=== PATIENT | female | born 1990 | race American Indian/Alaskan Native ===

== ENCOUNTER 2019-01-07 18:54 | Outpatient (CLI) | payer MEDICAID ==
[2019-01-07] MEDS ORDERED: LACTATED RINGERS 1,000 ML IV ONE (19:32)
[2019-01-07 20:01] LABS: Bacteria,Urine 3+ /HPF (Negative); Bilirubin,Urine NEG (Negative); Blood,Urine NEG (Negative); Color,Urine Amber (Yellow); Mucus,Urine 1+ /HPF
[2019-01-07 20:18] VITALS: BP 110/72
== END 2019-01-07 21:51 | disposition home or self-care (01) ==
LOC: TRG 18:54
PROVIDERS: ATTEND Obstetrics & Gynecology
DX: O21.8 Other vomiting complicating pregnancy (principal); K92.0 Hematemesis; O30.032 Twin pregnancy, monochorionic/diamniotic, second trimester; Z3A.22 22 weeks gestation of pregnancy
CPT/HCPCS: 81001; 96360; J7120

== ENCOUNTER 2019-02-07 18:54 | Inpatient (IN) | payer MEDICAID ==
[2019-02-07] MEDS ORDERED: CELESTONE SOLUSPAN IM SCH (22:00)
--- NOTE | 2019-02-08 15:23 | Consultation ---
History of Present Illness Consult date: 02/08/19 Requesting physician: ALINE SAN Reason for consult: complicated delivery (TWins with discordant growth and AEDV) History of present illness: Patient ANTONIA JOHNSON : 89 Attending: Dr. Aline San Fisher Gill Net: Ian Brar M.D. Date of Consultation: Friday, February 08, 2019 PERINATOLOGY CONSULTATION: Thank you for allowing us to continue to participate in the care of this patient. As you are aware, this is a 28-year-old para 0000 followed by our [facility] office due to a twin gestation. Her expected due date is 05/10/19 This patient was noted on an ultrasound in our office on 02/03/19 to have markedly discordant twin gestation. At the time of her last ultrasound (she was at 26 weeks 2 days) we found that Twin A is significantly smaller than twin B Twin A: 445 gram (1 pound 0 oz, 0th percentile) Twin B: 883 gram (1 pound 15 oz, 29th percentile) Patient previously had only one documented ultrasound performed at [facility] which showed: Twin A: 9 weeks 4 days. Twin B: 10 weeks 0 days. Patient does NOT have a documented MSAFP or NIPT test during this . Our ultrasound confirms what is now recognized to be a discordant monochorionic - diamniotic twin gestation. Patient is currently at 27 weeks gestation. Her LUCILLE is 05/10/19 Todays ultrasound shows significant discrepancy in size and weight as reflected above. During todays visit I had the opportunity to discuss the nature of discordant growth. The discrepancy in weight is 39 %. We also noted is normal amniotic fluid for both fetuses. Accordingly, the findings above are NOT consistent with classical twin to twin transfusion (since there is also no discrepancy in amniotic fluid). ULTRASOUND AT [facility] 02/07/19: PLEASE NOTE. TWINS HAVE SWITCHED IN REFERENCE TO PREVIOUS ULTRASOUNDS: TWIN A: 960 gram ( 960 gm 2 pound 2 oz, 29th percentile), BPP: 8/8 . UA Doppler: 2.67 2 vessel umbilical cord. Twin B: 585 gram ( 1 pound 5 oz, 0th percentile), BPP: 8/8 , UA Doppler: AEDV 2 vessel umbilical cord. PAST OB HISTORY: No previous pregnancies. PAST MEDICAL HISTORY: Patient DENIES hypertension, diabetes or asthma . PAST SURGICAL HISTORY: Gallstones in 2015 . I have reviewed the prognosis for this given the above findings. The patient denies contractions, abdominal pain, vaginal bleeding or fluid leakage. Patient was sent to [facility] yesterday for Steroids, and heart rate monitoring. She is awaiting an ultrasound for Doppler studies. DISCORDANT GROWTH AT 27 WEEKS GESTATION: In feliciano pregnancies with growth retardation due to presumed utero- placental insufficiency the aim of care is to select the appropriate time for delivery. This is achieved by balancing the relative risks of intrauterine with expectant management and or handicap from iatrogenic delivery. In dichorionic twin pregnancies discordant for intrauterine growth retardation the condition of both fetuses needs to be considered. Previous studies have shown that a policy of managing such pregnancies expectantly by avoiding iatrogenic delivery, irrespective of the condition of the smaller twin, unless the minimum gestation was 32 weeks and /or the estimated weight of the larger twin was more than 1500 g in 29 dichorionic pregnancies was reviewed. The policy of expectant management until 32 weeks or an estimated weight of the larger fetus of 1500 g aimed at minimizing the risk of and handicap of the appropriately grown fetus, by avoiding iatrogenic severe delivery irrespective of the condition of the growth retarded co-twin. After 32 weeks the timing of delivery aimed to maximize the chance of survival of the growth retarded twin. REFERENCE 1. We also reviewed the fact that weight discordance is associated with a poor and outcome, increased caesarean deliveries, a higher mortality and more intensive care unit admissions. Mult ivariate analysis shows that growth discordance is an independent risk factor for mortality but not for cerebral adverse outcome or respiratory distress syndrome. REFERENCE 2. Past History - Obstetrical History : 1 Medications and Allergies Allergies Allergy/AdvReac Type Severity Reaction Status Date / Time No Known Allergies Allergy Unverified 10/18/18 09:44 Home Medications Medication Instructions Recorded Confirmed Last Taken Type No Known Home Medications [No 02/08/19 02/08/19 Unknown History Reported Home Medications] Active Meds: Active Medications Betamethasone Acet/Betameth SodPhos (Celestone Soluspan) 12 mg IM Q24H NIKKIE Stop: 02/08/19 22:01 Last Admin: 02/07/19 22:25 Dose: 12 mg Documented by: - Vital Signs Vital signs: Vital Signs Pulse BP 113 H 129/63 02/07/19 20:21 02/07/19 20:21 Temp Pulse Resp BP Pulse Ox 97.7 F 106 H 15 126/62 96 02/08/19 08:34 02/08/19 13:14 02/08/19 08:34 02/08/19 13:14 02/07/19 23:45 Results All other labs normal. Assessment and Plan ASSESSMENT As stated above this is a MONOchorionic diamniotic twin gestation at 27 weeks with significant significant growth discordance which does NOT appear to be related to twin to twin transfusion syndrome (TTTS) The aforementioned findings place this patient at risk for spontanesous loss as well as an increased risk for spontaneous as well as and demise in utero for both fetuses. This does NOT appear to be a case for amnioreduction,. Based on todays ultrasound we CANNOT rule out aneuploidy in one or potentially both fetuses. Patient does not have an MSAFP test available for review. Given the discordancy; I have indicated that the likelihood for is increased. We would recommend steroids. Determination regarding inpatient vs outpatient management should be based on NST and follow-up Doppler during a 24 hour hospitalization to provide steroids. With continued AEDV in twin B; we would recommend ongoing hospitalization. At her last visit she was referred the patient for TORCH titers as well as testing for metabolic, or thrombophilia causes for growth restriction (although the likelihood for these conditions is not known) Patient was offered the option of amniocentesis or NIPT testing (Panorama). AWAITING DOPPLER TO DETERMINE INPATIENT VS OUTPATIENT THERAPY. RECOMMENDATIONS: 1. We discussed the concept of amniocentesis (for diagnosis of aneuploidy) as well as NIPT testing (ie Panorama test) for diagnosis of aneuploidy. 2. Patient DECLINED amniocentesis and NIPT (Panorama) testing today. 3. We will forward the TORCH and other testing when they become available. 4. We discussed the risk for loss in this . 5. Following NIPT testing and testing for other forms of discordant growth; I have recommended that she proceed to [facility] for steroids and FHT testing. 6. Contact [facility] following 24 hours of surveillance so that we can review her tracing to see if she is a candidate for ongoing inpatient or (possible) outpatient management. 7. With continued AEDV in twin B; we would recommend ongoing hospitalization. 8. I have reviewed the warning signs of labor with the patient. 9. Contact the [facility] physician vice president of talent acquisition with the results of the Doppler studies. Thank you for the consult. REFERENCES: 1. Lee Ann Peguero HughesK, et al Dichorionic twins discordant for intrauterine growth retardation Archives of Disease in Childhood - and [id number];77:[id number]. 2. J Gynecol Obstet Biol Reprod ([place]).2001;31(1 Suppl):9V49-28. Growth discordance in dichorionic twin pregnancies: risk factors, diagnosis and management. Sheng Orta,Betty M,Aj V,Rafal M,Nimisha Oro,Brigette Rossi.
[2019-02-08] MEDS ORDERED: COLACE PO PRN (17:53)
[2019-02-08] MEDS ORDERED: SODIUM CHLORIDE FLUSH SYRINGE 10 ML IV PRN (17:53)
[2019-02-08] MEDS ORDERED: SENOKOT S PO PRN (17:53)
[2019-02-08] MEDS ORDERED: TYLENOL PO PRN (17:53)
--- NOTE | 2019-02-08 18:03 | History and Physical Report ---
History of Present Illness Date of examination: 02/07/19 Date of admission: 02/07/19 18:54 Chief complaint: I need monitoring History of present illness: Patient is a 28 year old who presents with a twin at 26 weeks as a transfer patient. She was seen at [facility] and told she had discordant growth and 2 vessel cords x2. She presents to the hospital at the request of [facility] for monitoring, steroids and iv hydration. Past History Past Medical History: no pertinent history Past Surgical History: no surgical history Social history: single - Obstetrical History Expected Date of Delivery: 05/11/19 Actual Gestation: 26 Week(s) 6 Day(s) : 1 Medications and Allergies Allergies Allergy/AdvReac Type Severity Reaction Status Date / Time No Known Allergies Allergy Unverified 10/18/18 09:44 Home Medications Medication Instructions Recorded Confirmed Last Taken Type No Known Home Medications [No 02/08/19 02/08/19 Unknown History Reported Home Medications] Active Meds: Active Medications Acetaminophen (Tylenol) 650 mg PO Q4H PRN PRN Reason: Pain MILD(1-3)/Fever >100.5/MOORE Betamethasone Acet/Betameth SodPhos (Celestone Soluspan) 12 mg IM Q24H NIKKIE Stop: 02/08/19 22:01 Last Admin: 02/07/19 22:25 Dose: 12 mg Documented by: Docusate Sodium (Colace) 100 mg PO Q12H PRN PRN Reason: Constipation Multivitamins/Iron/Calcium ( Vitamin) 1 each PO QDAY NIKKIE Senna/Docusate Sodium (Senokot S) 2 tab PO Q12H PRN PRN Reason: Laxative Effect Sodium Chloride (Sodium Chloride Flush Syringe 10 Ml) 10 ml IV PRN PRN PRN Reason: LINE FLUSH Review of Systems All systems: negative Constitutional: fatigue - Vital Signs Vital signs: Vital Signs Pulse BP 113 H 129/63 02/07/19 20:21 02/07/19 20:21 Temp Pulse Resp BP Pulse Ox 97.9 F 104 H 15 140/64 96 02/08/19 16:20 02/08/19 16:12 02/08/19 16:20 02/08/19 16:12 02/07/19 23:45 - Physical Exam Breasts: Cardiovascular: Regular rate, Normal S1, Normal S2 Lungs: Positive: Clear to auscultation, Normal air movement Abdomen: Positive: normal appearance, soft, normal bowel sounds. Negative: distention, tenderness Genitourinary (Female): Positive: normal external genitalia, normal perenium Vulva: both: normal Vagina: Positive: normal moisture. Negative: discharge Cervix: Negative: lesion, discharge Uterus: Positive: normal size, normal contour Adnexa: both: normal Anus/Rectum: Positive: normal perianal skin, heme negative. Negative: rectal mass, hemorrhoids Extremities: Deep Tendon Reflex Grade: Normal +2 Results All other labs normal. Assessment and Plan Twin IUP with discordance, IUGR and AEDF. WIll admit for steroids and inpatient management per [facility].
--- NOTE | 2019-02-08 21:01 | Ultrasound Report ---
PROCEDURE: US OB VELOCIMETRY UMBILCAL ART TECHNIQUE: Real-time sonography was performed of the gravid uterus including duplex evaluation of th e umbilical cord. Images are submitted for interpretation. FINDINGS: There is a twin in the uterus. Twin A is in cephalic presentation and has a heart rate of 1 43 bpm. Twin B is also in the cephalic presentation and has a heart beat of 145 beats per second. Twin A cord duplex: Normal vascular waveforms with preserved diastolic flow. S/D ratio: 1. free loop: 3.41 2. free loop: 3.69 3. free loop: 3.42 S/D ratio average: 3.5 Diastolic flow is persistent RI: 1. free loop: 0.71 2. free loop: 0.73 3. free loop: 0.71 RI average: 0.71 Diastolic flow is persistent Twin B cord duplex: Intermittent end diastolic flow. PI: 1. free loop: 1.80 (elevated) 2. free loop: 1.42 (elevated) 3. free loop: 1.31 (elevated) PI average: 1.51 (elevated) There is an anterior myometrial fibroid measuring 6.3 x 5.2 x 6.8 cm. IMPRESSION: 1. Normal cord duplex twin A 2. Intermittent end-diastolic flow in twin B umbilical artery. Elevated pulsatility index This document is electronically signed by Blanca Chavez MD., February 08 2019 08:59:19 PM ET
[2019-02-09] MEDS: PRENATAL VITAMIN PO SCH (10:57)
--- NOTE | 2019-02-09 15:33 | Progress Note ---
Assessment and Plan ASSESSMENT MONOchorionic diamniotic twin gestation at 27 + weeks with significant significant growth discordance Patient at risk for spontanesous loss as well as an increased risk for spontaneous as well as and demise in Steroid for lung maturity Twin B with continued intermittent end diastolic flow per ultrasound dated 02/08/19 With continued AEDV in twin B; we recommend ongoing hospitalization. RECOMMENDATIONS: 1. With continued AEDV in twin B; we would recommend ongoing hospitalization. 2. Contact the [facility] physician fire prevention inspector with the results of the Doppler studies. 3. Twice weekly doppler and BPP 4. Not a candidate for discharge at this time 5. We will follow this patient Thank you for giving us the opportunity to participate in the care of this patient. For further questions or concerns please contact our fire prevention inspector physician. Subjective - Subjective Date of service: 02/09/19 Principal diagnosis: [place]-Di twin gestation, Twin B AEDV, growth restriction Patient reports: movement normal, other (Denies vaginal bleeding, contractions, leakage of fluid.) Objective - Vital Signs Vital Signs: Vital Signs - 12hr 02/09/19 02/09/19 02/09/19 08:35 09:02 11:04 Temperature 98.4 F Pulse Rate 90 103 H Respiratory 18 Rate Blood Pressure 122/68 O2 Sat by Pulse 97 Oximetry 02/09/19 02/09/19 02/09/19 11:09 11:14 11:19 Temperature Pulse Rate 102 H 108 H 99 H Respiratory Rate Blood Pressure O2 Sat by Pulse 100 98 98 Oximetry 02/09/19 02/09/19 02/09/19 11:24 11:29 11:34 Temperature Pulse Rate 97 H 111 H 105 H Respiratory Rate Blood Pressure O2 Sat by Pulse 98 98 100 Oximetry 02/09/19 02/09/19 02/09/19 12:03 12:08 12:13 Temperature Pulse Rate 129 H 115 H 113 H Respiratory Rate Blood Pressure O2 Sat by Pulse 98 98 99 Oximetry 02/09/19 02/09/19 02/09/19 12:18 12:23 12:36 Temperature 98.4 F Pulse Rate 108 H 125 H 144 H Respiratory 18 Rate Blood Pressure O2 Sat by Pulse 99 98 97 Oximetry 02/09/19 02/09/19 02/09/19 12:41 12:46 12:51 Temperature Pulse Rate 116 H 113 H 118 H Respiratory Rate Blood Pressure O2 Sat by Pulse 98 98 99 Oximetry 02/09/19 02/09/19 02/09/19 12:56 13:01 13:57 Temperature Pulse Rate 109 H 117 H 111 H Respiratory Rate Blood Pressure O2 Sat by Pulse 98 99 100 Oximetry 02/09/19 02/09/19 02/09/19 14:03 14:28 14:33 Temperature Pulse Rate 109 H 103 H 104 H Respiratory Rate Blood Pressure O2 Sat by Pulse 100 99 99 Oximetry 02/09/19 02/09/19 02/09/19 14:38 14:43 14:48 Temperature Pulse Rate 106 H 101 H 106 H Respiratory Rate Blood Pressure O2 Sat by Pulse 98 98 98 Oximetry 02/09/19 02/09/19 02/09/19 14:53 14:58 15:12 Temperature Pulse Rate 109 H 99 H Respiratory Rate Blood Pressure O2 Sat by Pulse 98 98 96 Oximetry 02/09/19 15:17 Temperature Pulse Rate 114 H Respiratory Rate Blood Pressure O2 Sat by Pulse 98 Oximetry - Exam Cardiovascular: Regular rate Lungs: Normal air movement Abdomen: Present: normal appearance, other (gravid) - Labs Labs: Laboratory Results - last 24 hr 02/08/19 19:58 Blood Type A POSITIVE Antibody Screen TNR SHYLA Antibody Screen Negative
--- NOTE | 2019-02-09 20:02 | Progress Note ---
Assessment and Plan HD 2 for this twin gestation with growth discordance and AEDF of twin B. Per [facility] patient should remain inpatient for an extended time. Continue current management. Subjective - Subjective Date of service: 02/09/19 Principal diagnosis: [place]-Di twin gestation, Twin B AEDV, growth restriction Interval history: Patient is a 28 year old who presents with a twin at 26 weeks as a transfer patient. She was seen at [facility] and told she had discordant growth and 2 vessel cords x2. She presents to the hospital at the request of [facility] for monitoring, steroids and iv hydration. Patient reports: movement normal, other (Denies vaginal bleeding, contractions, leakage of fluid.) Objective - Vital Signs Vital Signs: Vital Signs - 12hr 02/09/19 02/09/19 02/09/19 08:35 09:02 11:04 Temperature 98.4 F Pulse Rate 90 103 H Respiratory 18 Rate Blood Pressure 122/68 O2 Sat by Pulse 97 Oximetry 02/09/19 02/09/19 02/09/19 11:09 11:14 11:19 Temperature Pulse Rate 102 H 108 H 99 H Respiratory Rate Blood Pressure O2 Sat by Pulse 100 98 98 Oximetry 02/09/19 02/09/19 02/09/19 11:24 11:29 11:34 Temperature Pulse Rate 97 H 111 H 105 H Respiratory Rate Blood Pressure O2 Sat by Pulse 98 98 100 Oximetry 02/09/19 02/09/19 02/09/19 12:03 12:08 12:13 Temperature Pulse Rate 129 H 115 H 113 H Respiratory Rate Blood Pressure O2 Sat by Pulse 98 98 99 Oximetry 02/09/19 02/09/19 02/09/19 12:18 12:23 12:36 Temperature 98.4 F Pulse Rate 108 H 125 H 144 H Respiratory 18 Rate Blood Pressure O2 Sat by Pulse 99 98 97 Oximetry 02/09/19 02/09/19 02/09/19 12:41 12:46 12:51 Temperature Pulse Rate 116 H 113 H 118 H Respiratory Rate Blood Pressure O2 Sat by Pulse 98 98 99 Oximetry 02/09/19 02/09/19 02/09/19 12:56 13:01 13:57 Temperature Pulse Rate 109 H 117 H 111 H Respiratory Rate Blood Pressure O2 Sat by Pulse 98 99 100 Oximetry 06/05/19 06/05/19 06/05/19 14:03 14:28 14:33 Temperature Pulse Rate 109 H 103 H 104 H Respiratory Rate Blood Pressure O2 Sat by Pulse 100 99 99 Oximetry 02/09/19 02/09/19 02/09/19 14:38 14:43 14:48 Temperature Pulse Rate 106 H 101 H 106 H Respiratory Rate Blood Pressure O2 Sat by Pulse 98 98 98 Oximetry 02/09/19 02/09/19 02/09/19 14:53 14:58 15:12 Temperature Pulse Rate 109 H 99 H Respiratory Rate Blood Pressure O2 Sat by Pulse 98 98 96 Oximetry 02/09/19 02/09/19 02/09/19 15:17 15:22 15:27 Temperature Pulse Rate 114 H 103 H 101 H Respiratory Rate Blood Pressure O2 Sat by Pulse 98 99 99 Oximetry 02/09/19 02/09/19 02/09/19 15:45 15:50 15:56 Temperature Pulse Rate 97 H 95 H 102 H Respiratory Rate Blood Pressure O2 Sat by Pulse 100 100 98 Oximetry 02/09/19 02/09/19 02/09/19 16:01 16:05 16:06 Temperature Pulse Rate 98 H 99 H 101 H Respiratory Rate Blood Pressure 116/66 O2 Sat by Pulse 99 98 Oximetry 02/09/19 02/09/19 02/09/19 16:11 16:16 16:21 Temperature Pulse Rate 95 H 102 H 98 H Respiratory Rate Blood Pressure O2 Sat by Pulse 99 98 98 Oximetry 02/09/19 02/09/19 02/09/19 16:26 16:31 16:36 Temperature Pulse Rate 95 H 97 H 97 H Respiratory Rate Blood Pressure O2 Sat by Pulse 98 98 99 Oximetry 02/09/19 02/09/19 02/09/19 16:41 16:42 16:46 Temperature Pulse Rate 99 H 114 H 101 H Respiratory Rate Blood Pressure O2 Sat by Pulse 99 79 L 100 Oximetry 02/09/19 02/09/19 02/09/19 17:02 17:07 17:12 Temperature Pulse Rate 107 H 102 H 98 H Respiratory Rate Blood Pressure O2 Sat by Pulse 100 100 100 Oximetry 02/09/19 02/09/19 02/09/19 17:17 17:22 17:27 Temperature Pulse Rate 108 H 100 H 99 H Respiratory Rate Blood Pressure O2 Sat by Pulse 99 100 97 Oximetry 02/09/19 17:32 Temperature Pulse Rate 103 H Respiratory Rate Blood Pressure O2 Sat by Pulse 97 Oximetry - Exam Breasts: deferred Cardiovascular: Regular rate, Normal S1, Normal S2 Lungs: Clear to auscultation, Normal air movement Abdomen: Present: normal appearance, soft, normal bowel sounds Uterus: Present: normal FHR: auscultation normal - Labs Labs: Laboratory Results - last 24 hr 02/08/19 19:58 Blood Type A POSITIVE Antibody Screen TNR SHYLA Antibody Screen Negative
--- NOTE | 2019-02-10 09:13 | Ultrasound Report ---
PROCEDURE: US OB VELOCIMETRY UMBILCAL ART TECHNIQUE: Limited real-time sonography was performed of the gravid uterus including duplex evaluat ion of the umbilical cord. Images are submitted for interpretation. HISTORY: ABSENT END DIASTOLIC FLOW TWIN B COMPARISONS: 02/08/2019 FINDINGS: There is a twin in the uterus. Twin B is in the cephalic presentation and has a heart beat of 145 beats per second. Twin B cord duplex: Intermittently absent end diastolic flow. PI: 1. free loop: 1.80 (elevated) 2. free loop: 1.42 (elevated) 3. free loop: 1.31 (elevated) PI average: 1.51 (elevated) There is an anterior myometrial fibroid measuring 6.3 x 5.2 x 6.8 cm. IMPRESSION: Intermittently absent end diastolic flow in the umbilical artery of Twin B with elevated pulsatility index. This document is electronically signed by Bella James MD., February 10 2019 09:11:02 AM ET
--- NOTE | 2019-02-10 15:12 | Progress Note ---
Assessment and Plan ASSESSMENT As stated above this is a MONOchorionic diamniotic twin gestation at 27.2 weeks with significant significant growth discordance which does NOT appear to be related to twin to twin ( per Dr. Brar ) transfusion syndrome (TTTS) . Twin B with severe IUGR and AEDV . Twin A with SUA . Twin B with SUA The aforementioned findings place this patient at risk for spontanesous loss as well as an increased risk for spontaneous as well as and demise in utero for both fetuses. This does NOT appear to be a case for amnioreduction,. CANNOT rule out aneuploidy in one or potentially both fetuses. Patient does not have an MSAFP test available for review. Given the discordancy; I have indicated that the likelihood for is increased. With continued AEDV in twin B; we would recommend ongoing hospitalization. At her last visit she was referred the patient for TORCH titers as well as testing for metabolic, or thrombophilia causes for growth restriction (although the likelihood for these conditions is not known) Patient was previously offered the option of amniocentesis or NIPT testing (Panorama). Initial care with [facility] . NIPT was performed by [facility] RECOMMENDATIONS: 1. Continue inpatient assessment . 2. Patient previously DECLINED amniocentesis and NIPT (Panorama) testing today. 3. Please order the following TORCH panel, HgbA1C, TSH, Lupus Anticoagulant panel, [facility], and YARED ( [facility] did not previously perform ) 4. We discussed the risk for loss in this . 5. Twin growth assessment Q 2 week 6. Twin A and Twin B BPP and Doppler studies M/W/F 7. With continued AEDV in twin B; we would recommend ongoing hospitalization. 8. Contact the [facility] physician supervisor home restoration service with the results of the Doppler studies. 9. LDA Subjective - Subjective Principal diagnosis: [place]-Di twin gestation, Twin B AEDV, growth restriction Patient reports: movement normal, other (Denies vaginal bleeding, contractions, leakage of fluid.) Objective - Vital Signs Vital Signs: Vital Signs - 12hr 02/10/19 02/10/19 02/10/19 04:30 07:51 07:56 Temperature 97.4 F L Pulse Rate 87 76 77 Respiratory 20 Rate Blood Pressure 131/63 Blood Pressure [Left] O2 Sat by Pulse 99 99 Oximetry 02/10/19 02/10/19 02/10/19 08:01 08:06 08:11 Temperature Pulse Rate 86 81 77 Respiratory Rate Blood Pressure Blood Pressure [Left] O2 Sat by Pulse 99 98 98 Oximetry 02/10/19 02/10/19 08:12 11:02 Temperature 98.0 F Pulse Rate 79 99 H Respiratory 14 Rate Blood Pressure 115/60 114/52 Blood Pressure 115/60 [Left] O2 Sat by Pulse 98 Oximetry - Exam Breasts: deferred Cardiovascular: Regular rate Lungs: Normal air movement Abdomen: Present: other (gravid ). Absent: tenderness, guarding FHR: category 1 (for 27 weeks ) Uterine Contraction Pattern: Absent Deep Tendon Reflex Grade: Normal +2 - Results US- obstetric: report reviewed (see [facility] for full report )
[2019-02-10] MEDS: PRENATAL VITAMIN PO SCH (18:14)
--- NOTE | 2019-02-10 23:42 | Progress Note ---
Assessment and Plan HD 2 for this twin gestation with growth discordance and AEDF of twin B. Per [facility] patient should remain inpatient for an extended time. Continue current management. Subjective - Subjective Date of service: 02/10/19 Principal diagnosis: [place]-Di twin gestation, Twin B AEDV, growth restriction Interval history: Patient is a 28 year old who presents with a twin at 26 weeks as a transfer patient. She was seen at [facility] and told she had discordant growth and 2 vessel cords x2. She presents to the hospital at the request of [facility] for monitoring, steroids and iv hydration. Patient reports: movement normal, other (Denies vaginal bleeding, contractions, leakage of fluid.) Objective - Vital Signs Vital Signs: Vital Signs - 12hr 02/10/19 02/10/19 02/10/19 15:38 15:47 19:44 Temperature 97.2 F L 97.6 F Pulse Rate 100 H 91 H Blood Pressure 111/72 Blood Pressure 116/58 [Left] 02/10/19 19:46 Temperature Pulse Rate 91 H Blood Pressure 116/58 Blood Pressure [Left] - Exam Lungs: Clear to auscultation, Normal air movement Abdomen: Present: normal appearance, soft. Absent: distention, tenderness Uterus: Present: normal FHR: auscultation normal
--- NOTE | 2019-02-11 08:51 | Progress Note ---
Assessment and Plan A: [place]-di twin IUP at 27w2d admitted for growth discordance, severe IUGR of Twin B, Absent End Diastolic Flow of Twin B Obesity Fibroid Uterus P: Continue M/W/F doppler studies and in-patient monitoring [facility] recommendations appreciated. Subjective - Subjective Date of service: 02/11/19 Principal diagnosis: [place]-Di twin gestation, Twin B AEDV, growth restriction Interval history: Pt without complaints. Maintains positive attitude despite possibility of prolonged hospitalization. No obstetric complaints. Patient reports: movement normal, no new complaints, no loss of fluid, no vaginal bleeding, no contractions Objective - Vital Signs Vital Signs: Vital Signs - 12hr 02/11/19 02/11/19 02/11/19 07:57 08:02 08:07 Pulse Rate 86 91 H 92 H O2 Sat by Pulse 98 98 97 Oximetry 02/11/19 02/11/19 02/11/19 08:12 08:17 08:22 Pulse Rate 97 H 88 94 H O2 Sat by Pulse 97 97 97 Oximetry 02/11/19 02/11/19 02/11/19 08:27 08:32 08:37 Pulse Rate 83 93 H 86 O2 Sat by Pulse 98 98 97 Oximetry 02/11/19 02/11/19 08:42 08:47 Pulse Rate 85 83 O2 Sat by Pulse 97 98 Oximetry - Exam Breasts: deferred Cardiovascular: Regular rate Lungs: Clear to auscultation Abdomen: Present: soft (obese, gravid ) Uterus: Present: normal (gravid ) FHR: auscultation normal Uterine Contraction Monitor Mode: External Uterine Contraction Pattern: Absent Uterine Tone Measurement Phase: Resting Extremities: normal
--- NOTE | 2019-02-11 09:18 | Ultrasound Report ---
PROCEDURE: US OB VELOCIMETRY UMBILCAL ART TECHNIQUE: Duplex Doppler ultrasound of the umbilical artery was performed. HISTORY: well being COMPARISONS: Ultrasound of the umbilical artery performed on 02/08/2019 FINDINGS: There is a twin in the uterus. Twin A is in cephalic presentation. heart rate is 146 bpm. There is a normal waveform, however there is decreased end diastolic flow. S/D ratio: 1. free loop: 3.73 2. free loop: 4.69 3. free loop: 4.37 S/D ratio average: 4.3 RI: 1. free loop: 0.73 2. free loop: 0.79 3. free loop: 0.77 RI average: 0.76 IMPRESSION: Elevated S/D ratio and resistive index within the waveform of the umbilical artery for twin A, with d ecreased end diastolic flow. This document is electronically signed by Bella James MD., February 11 2019 09:15:41 AM ET
--- NOTE | 2019-02-11 09:44 | Ultrasound Report ---
PROCEDURE: US OB VELOCIMETRY UMBILCAL ART TECHNIQUE: Duplex Doppler ultrasound of the umbilical arteries was performed. HISTORY: well being COMPARISONS: 02/08/2019 FINDINGS: There is a twin . Twin B is in cephalic presentation. heart rate is 131 bpm. There is decreased end diastolic flow within the arterial waveform. There is a normal sawtooth patter n. S/D ratio: 1. Free loop: 5.45 2. Free loop: 3.44 3. Free loop: 4.74 S/D ratio average: 4.54 RI: 1. Free loop: 0.82 2. Free loop: 0.71 3. Free loop: 0.79 RI average: 0.77 IMPRESSION: Decreased end diastolic flow within the umbilical artery with elevated S/D ratio and resi stive index. This document is electronically signed by Bella James MD., February 11 2019 09:42:40 AM ET
[2019-02-11] MEDS: PRENATAL VITAMIN PO SCH (11:53)
--- NOTE | 2019-02-11 14:00 | Ultrasound Report ---
ULTRASOUND OB VELOCIMETRY UMBILICAL ARTERY HISTORY: ADEF. TECHNIQUE: Transabdominal ultrasound. Spectral Doppler interrogation was performed on 3 segments of the umbilical cord. FINDINGS: BABY A heart rate measures 161 beats per minute. The spectral waveforms are normal and persistent. No evidence for loss or reversal of end-diastolic flow. The resistive index average measures 0.70. The systolic/diastolic ratio average measures 3.31. IMPRESSION: Mildly elevated resistive indices. ULTRASOUND OB VELOCIMETRY UMBILICAL ARTERY HISTORY: ADEF. TECHNIQUE: Transabdominal ultrasound. Spectral Doppler interrogation was performed on 3 segments of the umbilical cord. FINDINGS: BABY B heart rate measures 149 beats per minute. The spectral waveforms demonstrate loss of end-diastolic flow on 2 of the 3 segments of the umbilical cord evaluated. The pulsatility index average measures 1.87. IMPRESSION: Loss of end-diastolic flow.
--- NOTE | 2019-02-11 14:01 | Progress Note ---
Assessment and Plan ASSESSMENT As stated above this is a Monochorionic diamniotic twin gestation at 27 weeks 3 days with significant significant growth discordance which does NOT appear to be related to twin to twin transfusion syndrome (TTTS) The aforementioned findings place this patient at risk for spontaneous loss as well as an increased risk for spontaneous as well as and demise in utero for both fetuses. This does NOT appear to be a case for amnioreduction,. Based on todays ultrasound we CANNOT rule out aneuploidy in one or potentially both fetuses. Patient does not have an MSAFP test available for review. Given the discordancy; I have indicated that the likelihood for is increased. We would recommend steroids. Determination regarding inpatient vs outpatient management should be based on NST and follow-up Doppler during a 24 hour hospitalization to provide steroids. With continued AEDV in twin B; we would recommend ongoing hospitalization. At her last visit she was referred the patient for TORCH titers as well as testing for metabolic, or thrombophilia causes for growth restriction (although the likelihood for these conditions is not known) AWAITING NIPT testing (Panorama).. RECOMMENDATIONS: 1. We discussed the concept of amniocentesis (for diagnosis of aneuploidy) as well as NIPT testing (ie Panorama test) for diagnosis of aneuploidy. 2. Patient DECLINED amniocentesis and NIPT (Panorama) testing today. 3. We will forward the TORCH and other testing when they become available. 4. We discussed the risk for loss in this . 5. Following NIPT testing and testing for other forms of discordant growth; I have recommended that she proceed to [facility] for steroids and FHT testing. 6. Contact [facility] following 24 hours of surveillance so that we can review her tracing to see if she is a candidate for ongoing inpatient or (possible) outpatient management. 7. We recommend continued inpatient monitoring due to IUGR and absent end d iastolic velocity. 8. I have reviewed the warning signs of labor with the patient. 9. Contact the [facility] physician website optimization strategist with the results of the Doppler studies. Thank you for the consult. Subjective - Subjective Date of service: 02/11/19 Principal diagnosis: [place]-Di twin gestation, Twin B AEDV, growth restriction Interval history: Patient ANTONIA JOHNSON : 89 Attending: Dr. Aline Arreguin Lens Dotter: Ian Brar M.D. Date of Consultation: Monday, February 11, 2019 PERINATOLOGY CONSULTATION: Thank you for allowing us to continue to participate in the care of this pat ient. As you are aware, this is a 28-year-old para 0000 followed by our [facility] office due to a twin gestation. She is currently at 27 weeks 3 days based on an expected due date is 05/10/19 This patient was noted on an ultrasound in our office on 02/03/19 to have markedly discordant twin gestation. At the time of her last ultrasound (she was at 26 weeks 2 days) we found that Twin A is significantly smaller than twin B Twin A: 445 gram (1 pound 0 oz, 0th percentile) Twin B: 883 gram (1 pound 15 oz, 29th percentile) Patient previously had only one documented ultrasound performed at [facility] which showed: Twin A: 9 weeks 4 days. Twin B: 10 weeks 0 days. Patient does NOT have a documented MSAFP or NIPT test during this . Our ultrasound confirms what is now recognized to be a discordant monochorionic - diamniotic twin gestation. Her most recent ultrasound shows significant discrepancy in size and weight as reflected above. During todays visit I had the opportunity to discuss the nature of discordant growth. The discrepancy in weight is 39 %. We also noted is normal amniotic fluid for both fetuses. Accordingly, the findings above are NOT consistent with classical twin to twin transfusion (since there is also no discrepancy in amniotic fluid). ULTRASOUND AT [facility] 02/07/19: PLEASE NOTE. TWINS HAVE SWITCHED IN REFERENCE TO PREVIOUS ULTRASOUNDS: TWIN A: 960 gram ( 960 gm 2 pound 2 oz, 29th percentile), BPP: 8/8 . UA Doppler: 2.67 2 vessel umbilical cord. Twin B: 585 gram ( 1 pound 5 oz, 0th percentile), BPP: 8/8 , UA Doppler: AEDV 2 vessel umbilical cord. ULTRASOUND AT [facility] 02/08/19: Twin A: FHR: 143 BPM, S/D ratio: 3.5, Placenta Anterior, Vertex. Twin B: FHR: 145 BPM, S/D ratio: Intermittent AEDV, Anterior PAST OB HISTORY: No previous pregnancies. PAST MEDICAL HISTORY: Patient DENIES hypertension, diabetes or asthma . PAST SURGICAL HISTORY: Gallstones in 2015 . I have reviewed the prognosis for this given the above findings. The patient denies contractions, abdominal pain, vaginal bleeding or fluid leakage. Patient was sent to [facility] yesterday for Steroids, and heart rate monitoring. She is awaiting her NIPT testing. Patient reports: movement normal, no new complaints, no loss of fluid, no vaginal bleeding, no contractions Objective - Vital Signs Vital Signs: Vital Signs - 12hr 02/11/19 02/11/19 02/11/19 07:57 08:02 08:07 Pulse Rate 86 91 H 92 H O2 Sat by Pulse 98 98 97 Oximetry 02/11/19 02/11/19 02/11/19 08:12 08:17 08:22 Pulse Rate 97 H 88 94 H O2 Sat by Pulse 97 97 97 Oximetry 02/11/19 02/11/19 02/11/19 08:27 08:32 08:37 Pulse Rate 83 93 H 86 O2 Sat by Pulse 98 98 97 Oximetry 02/11/19 02/11/19 02/11/19 08:42 08:47 08:52 Pulse Rate 85 83 87 O2 Sat by Pulse 97 98 97 Oximetry 02/11/19 02/11/19 08:57 09:02 Pulse Rate 85 86 O2 Sat by Pulse 97 98 Oximetry
[2019-02-12] MEDS: PRENATAL VITAMIN PO SCH (10:36)
--- NOTE | 2019-02-12 12:30 | Progress Note ---
Assessment and Plan A: [place]-di twin IUP at 27w3d admitted for inpatient monitoring secondary to growth discordance, severe IUGR of Twin B, Absent End Diastolic Flow of Twin B Obesity Fibroid Uterus P: Continue M/W/F doppler studies and in-patient monitoring Continue current management Subjective - Subjective Date of service: 02/12/19 Principal diagnosis: [place]-Di twin gestation, Twin B AEDV, growth restriction Interval history: Pt without complaints. Maintains positive attitude despite possibility of prolonged hospitalization. No obstetric complaints. Informed of ultrasound results from yesterday. Patient reports: movement normal, no new complaints, no loss of fluid, no vaginal bleeding, no contractions Objective - Vital Signs Vital Signs: Vital Signs - 12hr 02/12/19 02/12/19 10:19 10:26 Temperature 98.8 F Pulse Rate 100 H 100 H Respiratory 16 Rate Blood Pressure 113/55 Blood Pressure 113/55 [Left] - Exam Breasts: deferred Cardiovascular: Regular rate Lungs: Clear to auscultation Abdomen: Present: soft (obese, gravid ) Uterus: Present: normal (gravid ) FHR: auscultation normal Uterine Contraction Pattern: Absent Uterine Tone Measurement Phase: Resting Extremities: normal
[2019-02-13] MEDS: PRENATAL VITAMIN PO SCH (09:47)
--- NOTE | 2019-02-13 11:58 | Progress Note ---
Assessment and Plan A: [place]-di twin IUP at 27w4d admitted for inpatient monitoring secondary to growth discordance, severe IUGR of Twin B, Absent End Diastolic Flow of Twin B. s/p 2 doses of betamethasone 02/07 and 02/08 Obesity Fibroid Uterus P: Continue M/W/F doppler studies and in-patient monitoring. Next study tomorrow Continue current management Subjective - Subjective Date of service: 02/13/19 Principal diagnosis: [place]-Di twin gestation, Twin B AEDV, growth restriction Interval history: Pt without complaints. Maintains positive attitude despite possibility of prolonged hospitalization. No obstetric complaints. Patient reports: movement normal, no new complaints, no loss of fluid, no vaginal bleeding, no contractions Objective - Vital Signs Vital Signs: Vital Signs - 12hr 02/13/19 02/13/19 02/13/19 00:41 01:01 08:00 Temperature 98.6 F 97.6 F Pulse Rate 133 H Respiratory 20 14 Rate Blood Pressure 119/80 - Exam Breasts: deferred Cardiovascular: Regular rate Lungs: Clear to auscultation Abdomen: Present: soft (obese, gravid ) Uterus: Present: normal (gravid ) FHR: auscultation normal Uterine Contraction Pattern: Absent Uterine Tone Measurement Phase: Resting Extremities: edema (trace) - Results US- obstetric: report reviewed
[2019-02-13 13:26] LABS: Hematocrit 35.8 % (30.3-42.9); Hemoglobin 12.2 gm/dl (10.1-14.3); Mean Corpuscular HGB Conc 34 % (30-34); Mean Corpuscular Volume 94 fl (79-97); Platelet Count 282 K/mm3 (140-440); Red Blood Count 3.81 M/mm3 (3.65-5.03); Red Cell Distribution Width 17.9 % (13.2-15.2)
[2019-02-13] MEDS: BABY ASPIRIN PO SCH (15:39)
--- NOTE | 2019-02-14 07:48 | Progress Note ---
Assessment and Plan A: [place]-di twin IUP at 27w5d admitted for inpatient monitoring secondary to growth discordance, severe IUGR of Twin B, Absent End Diastolic Flow of Twin B. s/p 2 doses of betamethasone 02/07 and 02/08 Obesity Fibroid Uterus P: Continue M/W/F doppler studies and in-patient monitoring. study today - will report to [facility] results Continue current management Subjective - Subjective Date of service: 02/14/19 Principal diagnosis: [place]-Di twin gestation, Twin B AEDV, growth restriction Patient reports: movement normal, no new complaints, no loss of fluid, no vaginal bleeding, no contractions Objective - Vital Signs Vital Signs: Vital Signs - 12hr 02/13/19 02/14/19 20:19 01:39 Temperature 98.4 F Pulse Rate 101 H Respiratory 18 Rate Blood Pressure 120/57 - Exam Breasts: normal Cardiovascular: Regular rate, Normal S1 Lungs: Clear to auscultation, Normal air movement Abdomen: Present: normal appearance, soft, normal bowel sounds. Absent: distention, tenderness, guarding Vulva: both: normal Uterus: Present: normal, fundal height above umbilicus. Absent: bogginess, tenderness FHR: category 1 Extremities: normal Deep Tendon Reflex Grade: Normal +2 - Labs Labs: Abnormal Labs 02/13/19 12:51 WBC 17.0 H RDW 17.9 H Laboratory Results - last 24 hr 02/13/19 02/13/19 02/13/19 12:51 12:51 12:51 WBC 17.0 H RBC 3.81 Hgb 12.2 Hct 35.8 MCV 94 MCH 32 MCHC 34 RDW 17.9 H Plt Count 282 Hemoglobin A1c 4.7 TSH Blood Type A POSITIVE Antibody Screen Negative 02/13/19 12:51 WBC RBC Hgb Hct MCV MCH MCHC RDW Plt Count Hemoglobin A1c TSH 0.656 Blood Type Antibody Screen
[2019-02-14] MEDS: PRENATAL VITAMIN PO SCH (10:08)
[2019-02-14] MEDS: PEPCID PO SCH ×2 (10:09→22:30)
--- NOTE | 2019-02-14 13:23 | Ultrasound Report ---
ULTRASOUND BIOPHYSICAL PROFILE: ULTRASOUND BIOPHYSICAL PROFILE ADD EXAM: History: Intrauterine growth restriction Technique: Transabdominal ultrasound with Doppler interrogation. BABY A 2 - breathing movements 2 - movements 2 - posture and tone 2 - Qualitative amniotic fluid volume 8 - TOTAL SCORE OF POSSIBLE 8 Heart Rate (bpm) 144 BABY B 2 - breathing movements 2 - movements 2 - posture and tone 2 - Qualitative amniotic fluid volume 8 - TOTAL SCORE OF POSSIBLE 8 Heart Rate (bpm) 139
--- NOTE | 2019-02-14 13:24 | Ultrasound Report ---
ULTRASOUND OB VELOCIMETRY UMBILICAL ARTERY HISTORY: Intrauterine growth restriction. TECHNIQUE: Transabdominal ultrasound. Spectral Doppler interrogation was performed on 3 segments of the umbilical cord. FINDINGS: BABY A heart rate measures 147 beats per minute. The spectral waveforms are normal and persistent. No evidence for loss or reversal of end-diastolic flow. The resistive index average measures 0.73. The systolic/diastolic ratio average measures 3.73. IMPRESSION: Mildly elevated resistive indices. No significant change since 02/11/19.
--- NOTE | 2019-02-14 13:25 | Ultrasound Report ---
ULTRASOUND OB VELOCIMETRY UMBILICAL ARTERY HISTORY: Intrauterine growth restriction. TECHNIQUE: Transabdominal ultrasound. Spectral Doppler interrogation was performed on 3 segments of the umbilical cord. FINDINGS: heart rate measures 139 beats per minute. The spectral waveforms again demonstrate loss of end-diastolic flow. The average pulsatility index measures 2.16. IMPRESSION: Loss of end-diastolic flow as described. No significant change since 02/11/19.
--- NOTE | 2019-02-14 14:06 | Progress Note ---
Assessment and Plan ASSESSMENT MONOchorionic diamniotic twin gestation at 27 6/7 weeks ([place] 05/10/19) with significant significant growth discordance Patient at risk for spontanesous loss as well as an increased risk for spontaneous as well as and demise in Steroid for lung maturity Twin B with continued intermittent end diastolic flow per ultrasound dated 02/14/19 With continued AEDV in twin B; we recommend ongoing hospitalization. The aforementioned findings place this patient at risk for spontaneous loss as well as an increased risk for spontaneous as well as and demise in utero for both fetuses. Patient does not have an MSAFP test available for review. RECOMMENDATIONS: 1. With continued AEDV in twin B; we would recommend ongoing hospitalization. 2. Contact the [facility] physician transitional care nurse with the results of the Doppler studies. 3. Twice weekly doppler and BPP 4. Not a candidate for discharge at this time 5. We will follow this patient 6. We recommend continued inpatient monitoring due to IUGR and absent end diastolic velocity. Thank you for giving us the opportunity to participate in the care of this patient. For further questions or concerns please contact our transitional care nurse physician. Subjective - Subjective Date of service: 02/14/19 Principal diagnosis: [place]-Di twin gestation, Twin B AEDV, growth restriction Patient reports: movement normal, no new complaints, no loss of fluid, no vaginal bleeding, no contractions Objective - Exam Breasts: deferred Cardiovascular: Regular rate Lungs: Normal air movement Abdomen: Present: normal appearance (gravid) - Labs Labs: Abnormal Labs 02/13/19 12:51 WBC 17.0 H RDW 17.9 H Laboratory Results - last 24 hr 02/13/19 12:51 Blood Type A POSITIVE Antibody Screen Negative
--- NOTE | 2019-02-15 08:19 | Progress Note ---
Assessment and Plan A: [place]-di twin IUP at 27w6d admitted for inpatient monitoring secondary to growth discordance, severe IUGR of Twin B, Two vessel cord x 2, Absent End Diastolic Flow of Twin B. s/p 2 doses of betamethasone 02/07 and 02/08 Obesity Fibroid Uterus P: Continue M/W/F doppler studies and in-patient monitoring. Next study tomorrow Continue current management Subjective - Subjective Date of service: 02/15/19 Principal diagnosis: [place]-Di twin gestation, Twin B AEDV, growth restriction Interval history: Pt somewhat frustrated with prolonged hospitalization. No obstetric complaints. Patient reports: movement normal, no new complaints, no loss of fluid, no vaginal bleeding, no contractions Objective - Vital Signs Vital Signs: Vital Signs - 12hr 02/14/19 02/14/19 02/15/19 22:27 22:28 01:57 Temperature 97.8 F Pulse Rate 117 H 100 H Respiratory 18 Rate Blood Pressure 129/93 98/54 02/15/19 02:00 Temperature 97.8 F Pulse Rate Respiratory 18 Rate Blood Pressure - Exam Breasts: deferred Cardiovascular: Regular rate Lungs: Clear to auscultation Abdomen: Present: normal appearance (obese, gravid ). Absent: tenderness Uterus: Present: normal (gravid ) FHR: auscultation normal Uterine Contraction Monitor Mode: External Uterine Contraction Pattern: Absent Uterine Tone Measurement Phase: Resting Extremities: normal - Labs Labs: Abnormal Labs 02/13/19 12:51 WBC 17.0 H RDW 17.9 H - Results US- obstetric: report reviewed
--- NOTE | 2019-02-15 11:01 | Progress Note ---
Assessment and Plan ASSESSMENT As stated above this is a Monochorionic diamniotic twin gestation at 27 weeks 6 days with significant significant growth discordance which does NOT appear to be related to twin to twin transfusion syndrome (TTTS) The aforementioned findings place this patient at risk for spontaneous loss as well as an increased risk for spontaneous as well as and demise in utero for both fetuses. This does NOT appear to be a case for amnioreduction,. Given the discordancy; I have indicated that the likelihood for is increased. We would recommend steroids. With continued AEDV in twin B; we would recommend ongoing hospitalization. At her last visit she was referred the patient for TORCH titers as well as testing for metabolic, or thrombophilia causes for growth restriction (although the likelihood for these conditions is not known) Negative NIPT testing RECOMMENDATIONS: 1. We discussed the concept of amniocentesis (for diagnosis of aneuploidy) as well as NIPT testing. 2. Her NIPT test was NEGATIVE 3. We will forward the TORCH and other testing when they become available. 4. We discussed the risk for loss in this . 5. Following NIPT testing and testing for other forms of discordant growth; I have recommended that she proceed to [facility] for steroids and FHT testing. 6. Contact [facility] following 24 hours of surveillance so that we can review her tracing to see if she is a candidate for ongoing inpatient or (possible) outpatient management. 7. We recommend continued inpatient monitoring due to IUGR and absent end diastolic velocity. 8. I have reviewed the warning signs of labor with the patient. 9. Contact the [facility] physician electrical & instrumentation supervisor with the results of the Doppler studies. Thank you for the consult. Subjective - Subjective Date of service: 02/15/19 Principal diagnosis: [place]-Di twin gestation, Twin B AEDV, growth restriction Interval history: Patient ANTONIA JOHNSON : 89 Attending: Dr. Aline Arreguin Turbine Room Attendant: Ian Brar M.D. Date of Consultation: Friday, February 15, 2019 PERINATOLOGY CONSULTATION: Thank you for allowing us to continue to participate in the care of this patient. As you are aware, this is a 28-year-old para 0000 followed by our [facility] office due to a twin gestation. She is currently at 27 weeks 6 days based on an expected due date is 9/3/19 ULTRASOUND AT [facility] 02/07/19: PLEASE NOTE. TWINS HAVE SWITCHED IN REFERENCE TO PREVIOUS ULTRASOUNDS: TWIN A: 960 gram ( 960 gm 2 pound 2 oz, 29th percentile), BPP: 8/8 . UA Doppler: 2.67 2 vessel umbilical cord. Twin B: 585 gram ( 1 pound 5 oz, 0th percentile), BPP: 8/8 , UA Doppler: AEDV 2 vessel umbilical cord. ULTRASOUND AT [facility] 02/08/19: Twin A: FHR: 143 BPM, S/D ratio: 3.5, Placenta Anterior, Vertex. Twin B: FHR: 145 BPM, S/D ratio: Intermittent AEDV, Anterior PAST OB HISTORY: No previous pregnancies. PAST MEDICAL HISTORY: Patient DENIES hypertension, diabetes or asthma . PAST SURGICAL HISTORY: Gallstones in 2015 . I have reviewed the prognosis for this given the above findings. The patient denies contractions, abdominal pain, vaginal bleeding or fluid leakage. Patient was sent to [facility] yesterday for Steroids, and heart rate monitoring. THE RESULTS OF HER NIPT TEST FROM LAST WEEK WAS NEGATIVE. DISCORDANT GROWTH AT 27-28 WEEKS GESTATION: In feliciano pregnancies with growth retardation due to presumed utero- placental insufficiency the aim of care is to select the appropriate time for delivery. This is achieved by balancing the relative risks of intrauterine with expectant management and or handicap from iatrogenic delivery. In dichorionic twin pregnancies discordant for intrauterine growth retardation the condition of both fetuses needs to be considered. Previous studies have shown that a policy of managing such pregnancies expectantly by avoiding iatrogenic delivery, irrespective of the condition of the smaller twin, unless the minimum gestation was 32 weeks and /or the estimated weight of the larger twin was more than 1500 g in 29 dichorionic pregnancies was reviewed. The policy of expectant management until 32 weeks or an estimated weight of the larger fetus of 1500 g aimed at minimizing the risk of and handicap of the appropriately grown fetus, by avoiding iatrogenic severe delivery irrespective of the condition of the growth retarded co-twin. After 32 weeks the timing of delivery aimed to maximize the chance of survival of the growth retarded twin. REFERENCE 1. We also reviewed the fact that weight discordance is associated with a poor and outcome, increased caesarean deliveries, a higher mortality and more intensive care unit admissions. Multivariate analysis shows that growth discordance is an independent risk factor for mortality but not for cerebral adverse outcome or respiratory distress syndrome. REFERENCE 2.. Patient reports: movement normal, no new complaints, no loss of fluid, no vaginal bleeding, no contractions Objective - Vital Signs Vital Signs: Vital Signs - 12hr 02/15/19 02/15/19 01:57 02:00 Temperature 97.8 F Pulse Rate 100 H Respiratory 18 Rate Blood Pressure 98/54 - Labs Labs: Abnormal Labs 02/13/19 12:51 WBC 17.0 H RDW 17.9 H
[2019-02-15] MEDS: PEPCID PO SCH (15:43)
[2019-02-15] MEDS: BABY ASPIRIN PO SCH (15:43)
--- NOTE | 2019-02-16 09:45 | Progress Note ---
Assessment and Plan A: [place]-di twin IUP at 28w0d admitted for inpatient monitoring secondary to growth discordance, severe IUGR of Twin B, Two vessel cord x 2, Absent End Diastolic Flow of Twin B. s/p 2 doses of betamethasone 02/07 and 02/08 Obesity Fibroid Uterus P: Continue M/W/F BPP and Doppler studies and in-patient monitoring. Next study today Continue current management Subjective - Subjective Date of service: 02/16/19 Principal diagnosis: [place]-Di twin gestation, Twin B AEDV, growth restriction Interval history: Pt without obstetric complaints. Patient reports: movement normal, no new complaints, no loss of fluid, no vaginal bleeding, no contractions Objective - Vital Signs Vital Signs: Vital Signs - 12hr 02/16/19 02/16/19 02/16/19 00:00 04:15 05:00 Temperature 98 F 98.1 F Pulse Rate 82 100 H 98 H Respiratory 18 18 Rate Blood Pressure 134/80 Blood Pressure 124/64 120/60 [Left] O2 Sat by Pulse 98 98 Oximetry 02/16/19 09:09 Temperature 97.9 F Pulse Rate Respiratory 16 Rate Blood Pressure Blood Pressure [Left] O2 Sat by Pulse Oximetry - Exam Breasts: deferred Cardiovascular: Regular rate Lungs: Clear to auscultation Abdomen: Present: soft (obese, gravid ) Uterus: Present: normal (gravid ) FHR: auscultation normal Uterine Contraction Monitor Mode: External Uterine Contraction Pattern: Absent Uterine Tone Measurement Phase: Resting Extremities: normal - Labs Labs: Abnormal Labs 02/13/19 12:51 WBC 17.0 H RDW 17.9 H Laboratory Results - last 24 hr 02/13/19 12:51 Lupus Anticoagulant see below
[2019-02-16] MEDS: PEPCID PO SCH (10:32)
[2019-02-16] MEDS: PRENATAL VITAMIN PO SCH (10:32)
[2019-02-16] MEDS: BABY ASPIRIN PO SCH (10:32)
--- NOTE | 2019-02-16 15:18 | Ultrasound Report ---
ULTRASOUND BIOPHYSICAL PROFILE: ULTRASOUND BIOPHYSICAL PROFILE ADD EXAM: History: Twin gestation, intrauterine growth restriction, well being Technique: Transabdominal ultrasound with Doppler interrogation. BABY A 2 - breathing movements 2 - movements 2 - posture and tone 2 - Qualitative amniotic fluid volume 8 - TOTAL SCORE OF POSSIBLE 8 Heart Rate (bpm) 157 BABY B 2 - breathing movements 2 - movements 2 - posture and tone 2 - Qualitative amniotic fluid volume 8 - TOTAL SCORE OF POSSIBLE 8 Heart Rate (bpm) 149
--- NOTE | 2019-02-16 15:21 | Ultrasound Report ---
ULTRASOUND OB VELOCIMETRY UMBILICAL ARTERY HISTORY: Intrauterine growth restriction, twin gestation. TECHNIQUE: Transabdominal ultrasound. Spectral Doppler interrogation was performed on 3 segments of the umbilical cord. FINDINGS: BABY A heart rate measures 157 beats per minute. The spectral waveforms are normal and persistent. No evidence for loss or reversal of end-diastolic flow. The resistive index average measures 0.70. The systolic/diastolic ratio average measures 3.47.
--- NOTE | 2019-02-16 15:22 | Ultrasound Report ---
ULTRASOUND OB VELOCIMETRY UMBILICAL ARTERY HISTORY: Twin gestation, intrauterine growth restriction. TECHNIQUE: Transabdominal ultrasound. Spectral Doppler interrogation was performed on 3 segments of the umbilical cord. FINDINGS: BABY B heart rate measures 149 beats per minute. The spectral waveforms demonstrate loss of end-diastolic flow. The pulsatility index average measures 2.23.
[2019-02-17] MEDS: PEPCID PO SCH ×3 (03:10→21:52)
--- NOTE | 2019-02-17 08:47 | Progress Note ---
Assessment and Plan A: [place]-di twin IUP at 28w1d admitted for inpatient monitoring secondary to growth discordance, severe IUGR of Twin B, Two vessel cord x 2, Absent End Diastolic Flow of Twin B. s/p 2 doses of betamethasone 02/07 and 02/08 Obesity Fibroid Uterus P: Continue M/W/F BPP and Doppler studies and in-patient monitoring. Next study tomorrow Continue current management Subjective - Subjective Date of service: 02/17/19 Principal diagnosis: [place]-Di twin gestation, Twin B AEDV, growth restriction Interval history: Pt without obstetric complaints. Patient reports: movement normal, no new complaints, no loss of fluid, no vaginal bleeding, no contractions Objective - Vital Signs Vital Signs: Vital Signs - 12hr 02/17/19 02/17/19 03:15 03:19 Temperature 97.6 F Pulse Rate 109 H 109 H Respiratory 16 Rate Blood Pressure 122/60 Blood Pressure 122/60 [Left] - Exam Breasts: deferred Cardiovascular: Regular rate Lungs: Clear to auscultation Abdomen: Present: soft (gravid, obese ) Uterus: Present: normal FHR: auscultation normal Uterine Contraction Monitor Mode: External Uterine Contraction Pattern: Absent Uterine Tone Measurement Phase: Resting Extremities: normal - Labs Labs: Abnormal Labs 02/13/19 12:51 WBC 17.0 H RDW 17.9 H Laboratory Results - last 24 hr 02/16/19 14:01 Blood Type A POSITIVE Antibody Screen Negative
[2019-02-17] MEDS: BABY ASPIRIN PO SCH (11:20)
[2019-02-17] MEDS: PRENATAL VITAMIN PO SCH (11:20)
[2019-02-17] MEDS: ZOFRAN IV PRN (13:05)
--- NOTE | 2019-02-17 13:46 | Consultation ---
History of Present Illness Consult date: 02/17/19 Requesting physician: EDWIGE SAN History of present illness: Followed now at 28 2/7 weeks MonoDi Twins Twin B with Severe IUGR and AEDF No complaints Denies Vag bleeding leaking ctx Pos FM's APA US 02/07/19 Twin A 960 grams 29% with AC at 6% Twin B 585 grams 0% with AC at 0% and AEDF Most Recent [facility] US 02/16/19 BPP Twin A 8/8 with Cord Doppler - S/D at 3.47 BPP Twin B 8/8 with Cord Doppler - AEDF Labs 02/13/19 TSH at .656 HgA1c at 4.7% H/H Plt 282 Afeb VSS 122/60 Past History Past Medical History: no pertinent history Past Surgical History: no surgical history - Obstetrical History : 1 Medications and Allergies Allergies Allergy/AdvReac Type Severity Reaction Status Date / Time No Known Allergies Allergy Unverified 10/18/18 09:44 Home Medications Medication Instructions Recorded Confirmed Last Taken Type No Known Home Medications [No 02/08/19 02/08/19 Unknown History Reported Home Medications] Active Meds: Active Medications Acetaminophen (Tylenol) 650 mg PO Q4H PRN PRN Reason: Pain MILD(1-3)/Fever >100.5/MOORE Last Admin: 02/12/19 12:52 Dose: 650 mg Documented by: Aspirin (Baby Aspirin) 81 mg PO QDAY [facility] Last Admin: 02/17/19 11:20 Dose: 81 mg Documented by: Docusate Sodium (Colace) 100 mg PO Q12H PRN PRN Reason: Constipation Famotidine (Pepcid) 20 mg PO BID [facility] Last Admin: 02/17/19 11:20 Dose: 20 mg Documented by: Lactated Ringer's (Lactated Ringers) 1,000 mls @ 125 mls/hr IV DIRECT [facility] Multivitamins/Iron/Calcium ( Vitamin) 1 each PO QDAY [facility] Last Admin: 02/17/19 11:20 Dose: 1 each Documented by: Ondansetron HCl (Zofran) 4 mg IV Q8H PRN PRN Reason: Nausea And Vomiting Last Admin: 02/17/19 13:05 Dose: 4 mg Documented by: Senna/Docusate Sodium (Senokot S) 2 tab PO Q12H PRN PRN Reason: Laxative Effect Sodium Chloride (Sodium Chloride Flush Syringe 10 Ml) 10 ml IV PRN PRN PRN Reason: LINE FLUSH - Vital Signs Vital signs: Vital Signs Pulse BP 113 H 129/63 02/07/19 20:21 02/07/19 20:21 Temp Pulse Resp BP Pulse Ox 97.6 F 118 H 16 119/61 98 02/17/19 03:15 02/17/19 11:40 02/17/19 03:15 02/17/19 11:40 02/16/19 20:00 Results Result Diagrams: 02/13/19 12:51 All other labs normal. Assessment and Plan Impression 1. [place] Di Twins at 28 2/7 weeks 2. Severe IUGR Twin B with AEDF 3. SUA Twin A and B 4. Patient had declined Amnio for aneuploidy - Awaiting NIPT 5. Will check for other labs Torch sent out 6. Delivery for evidence of compromise or REDF 7. S/P steroids and Mg 8. Cont close A-P surveillance and Cord dopplers and BPP on M/W/ 9. Obtain US EFW q 2-3 weeks next EFW's should be done week of 02/21/19
[2019-02-17] MEDS ORDERED: DEEP SEA NS PRN (19:28)
[2019-02-18] MEDS: AMBIEN PO PRN ×2 (00:22→23:06)
--- NOTE | 2019-02-18 08:21 | Progress Note ---
Assessment and Plan A: [place]-di twin IUP at 27w6d admitted for inpatient monitoring secondary to growth discordance, severe IUGR of Twin B, Absent End Diastolic Flow of Twin B. s/p 2 doses of betamethasone 02/07 and 02/08 Obesity Fibroid Uterus P: Continue M/W/F doppler studies and in-patient monitoring. us PENDING TODAY study today - will report to [facility] results Continue current management Subjective - Subjective Date of service: 02/18/19 Principal diagnosis: [place]-Di twin gestation, Twin B AEDV, growth restriction Patient reports: movement normal, no new complaints, no loss of fluid, no vaginal bleeding, no contractions Objective - Vital Signs Vital Signs: Vital Signs - 12hr 02/17/19 02/18/19 21:24 00:36 Temperature 98.1 F Pulse Rate 102 H 100 H Respiratory 20 Rate Blood Pressure 126/65 115/55 - Exam Breasts: normal Cardiovascular: Regular rate, Normal S1 Lungs: Clear to auscultation, Normal air movement Abdomen: Present: normal appearance, soft, normal bowel sounds. Absent: te nderness, guarding Vulva: both: normal Uterus: Present: normal, firm, fundal height above umbilicus. Absent: bogginess, tenderness FHR: category 1 - Labs Labs: Abnormal Labs 02/13/19 12:51 WBC 17.0 H RDW 17.9 H Laboratory Results - last 24 hr 02/13/19 12:51 LA PTT Baseline See scanned result dRVVT Screen 50:50 See scanned result dRVVT Mix Interpret See scanned result
[2019-02-18] MEDS: ZOFRAN IV PRN (08:46)
[2019-02-18] MEDS: PRENATAL VITAMIN PO SCH (10:18)
[2019-02-18] MEDS: BABY ASPIRIN PO SCH (10:18)
[2019-02-18] MEDS: PEPCID PO SCH ×2 (10:18→21:32)
--- NOTE | 2019-02-18 11:33 | Ultrasound Report ---
BIOPHYSICAL PROFILE: BABY A INDICATION: IUGR. COMPARISON: 02/16/2019. TECHNIQUE: Transabdominal ultrasound with Doppler interrogation. 2 - breathing movements 2 - movements 2 - posture and tone 2 - Qualitative amniotic fluid volume 8 - TOTAL SCORE OF POSSIBLE 8 Heart Rate (bpm) 151 CONCLUSION: Findings, as above.
--- NOTE | 2019-02-18 11:34 | Ultrasound Report ---
BIOPHYSICAL PROFILE: BABY B INDICATION: IUGR, AEDF. COMPARISON: 02/16/2019. TECHNIQUE: Transabdominal ultrasound with Doppler interrogation. 2 - breathing movements 2 - movements 2 - posture and tone 2 - Qualitative amniotic fluid volume 8 - TOTAL SCORE OF POSSIBLE 8 Heart Rate (bpm) 166 CONCLUSION: Findings, as above.
--- NOTE | 2019-02-18 11:44 | Ultrasound Report ---
ULTRASOUND OB VELOCIMETRY UMBILICAL ARTERY: FETUS B HISTORY: IUGR. Absent end diastolic flow. COMPARISON: 02/16/2019 FINDINGS: Transabdominal imaging with spectral Doppler interrogation. 3 separate segments of the cord were evaluated. heart rate measures 166 beats per minute. No end-diastolic flow noted. Free loop Pulsitivity Indices (PI) in the examined loops are 2.3, 2.75 and 2.38 with average PI = 2.5. Flow pattern is persistent. CONCLUSION: Findings for Fetus B, as above. Thank you for the opportunity to participate in this patient's care.
--- NOTE | 2019-02-18 11:46 | Ultrasound Report ---
ULTRASOUND OB VELOCIMETRY UMBILICAL ARTERY: FETUS A HISTORY: IUGR. COMPARISON: 02/16/2019. FINDINGS: Transabdominal imaging with spectral Doppler interrogation. 3 separate segments of the cord were evaluated. heart rate measures 142 beats per minute. Free loop S/D ratio in the examined loops are 2.9, 3.2 and 3.4 with average S/D ratio = 3.2. Normal waveform. Flow pattern is persistent. Free loop RI in the examined loops are 0.66, 0.69 and 0.71 with average RI= 0.69. Normal waveform. Flow pattern is persistent. CONCLUSION: Normal and persistent spectral waveforms are demonstrated throughout for Fetus A. The S/D ratio average measures 3.2. The resistive index average measures 0.69. Thank you for the opportunity to participate in this patient's care.
[2019-02-19] MEDS: BABY ASPIRIN PO SCH (18:43)
[2019-02-19] MEDS: PRENATAL VITAMIN PO SCH (18:43)
[2019-02-19] MEDS ORDERED: BICITRA PO ONE (19:14)
[2019-02-20] MEDS: LACTATED RINGERS 1,000 ML IV SCH (08:23)
[2019-02-20] MEDS ORDERED: BICITRA ONE (08:24)
--- NOTE | 2019-02-20 09:42 | Progress Note ---
Assessment and Plan A: [place]-di twin IUP at 28 weeks admitted for inpatient monitoring secondary to growth discordance, severe IUGR of Twin B, Absent End Diastolic Flow of Twin B. s/p 2 doses of betamethasone 02/07 and 02/08 Obesity Fibroid Uterus P: Dopplers no change- repeat tomorrow continue to follow MFM recommendations Continue current management Subjective - Subjective Date of service: 02/20/19 Principal diagnosis: [place]-Di twin gestation, Twin B AEDV, growth restriction Patient reports: movement normal, no new complaints, no loss of fluid, no vaginal bleeding, no contractions Objective - Exam Breasts: normal Cardiovascular: Regular rate, Normal S1 Lungs: Clear to auscultation, Normal air movement Abdomen: Present: normal appearance, soft, normal bowel sounds. Absent: distention, tenderness, guarding Vulva: both: normal Uterus: Present: normal, firm, fundal height above umbilicus. Absent: bogginess, tenderness FHR: category 1 - Labs Labs: Abnormal Labs 02/13/19 12:51 WBC 17.0 H RDW 17.9 H
[2019-02-21] MEDS: PEPCID PO SCH (10:16)
[2019-02-21] MEDS: PRENATAL VITAMIN PO SCH (10:16)
[2019-02-21] MEDS: BABY ASPIRIN PO SCH (10:17)
--- NOTE | 2019-02-21 14:22 | Consultation ---
History of Present Illness Consult date: 02/21/19 Requesting physician: EDWIGE SAN History of present illness: Followed now at 28 6/7 weeks MonoDi Twins Twin B with Severe IUGR and AEDF No complaints Denies Vag bleeding leaking ctx Pos FM's APA US 02/07/19 Twin A 960 grams 29% with AC at 6% Twin B 585 grams 0% with AC at 0% and AEDF Most Recent [facility] 02/18/19 BPP Twin A 8/8 with Cord Doppler - S/D at 3.2 BPP Twin B 8/8 with Cord Doppler - AEDF Labs 02/13/19 TSH at .656 HgA1c at 4.7% H/H Plt 282 Afeb VSS Past History Past Medical History: no pertinent history Past Surgical History: no surgical history - Obstetrical History : 1 Medications and Allergies Allergies Allergy/AdvReac Type Severity Reaction Status Date / Time No Known Allergies Allergy Unverified 10/18/18 09:44 Home Medications Medication Instructions Recorded Confirmed Last Taken Type No Known Home Medications [No 02/08/19 02/08/19 Unknown History Reported Home Medications] Active Meds: Active Medications Acetaminophen (Tylenol) 650 mg PO Q4H PRN PRN Reason: Pain MILD(1-3)/Fever >100.5/MOORE Last Admin: 02/12/19 12:52 Dose: 650 mg Documented by: Aspirin (Baby Aspirin) 81 mg PO QDAY [facility] Last Admin: 02/21/19 10:17 Dose: 81 mg Documented by: Docusate Sodium (Colace) 100 mg PO Q12H PRN PRN Reason: Constipation Famotidine (Pepcid) 20 mg PO BID [facility] Last Admin: 02/21/19 10:16 Dose: 20 mg Documented by: Lactated Ringer's (Lactated Ringers) 1,000 mls @ 125 mls/hr IV DIRECT [facility] Last Admin: 02/20/19 08:23 Dose: 125 mls/hr Documented by: Multivitamins/Iron/Calcium ( Vitamin) 1 each PO QDAY [facility] Last Admin: 02/21/19 10:16 Dose: 1 each Documented by: Ondansetron HCl (Zofran) 4 mg IV Q8H PRN PRN Reason: Nausea And Vomiting Last Admin: 02/18/19 08:46 Dose: 4 mg Documented by: Senna/Docusate Sodium (Senokot S) 2 tab PO Q12H PRN PRN Reason: Laxative Effect Sodium Chloride (Sodium Chloride Flush Syringe 10 Ml) 10 ml IV PRN PRN PRN Reason: LINE FLUSH Sodium Chloride (Deep Sea) 2 spray NS PRN PRN PRN Reason: Dry Nasal Passages Zolpidem Tartrate (Ambien) 10 mg PO QHS PRN PRN Reason: Insomnia Last Admin: 02/18/19 23:06 Dose: 10 mg Documented by: - Vital Signs Vital signs: Vital Signs Pulse BP 113 H 129/63 02/07/19 20:21 02/07/19 20:21 Temp Pulse Resp BP Pulse Ox 98.6 F 97 H 18 98/51 100 02/21/19 12:46 02/21/19 14:16 02/21/19 12:46 02/21/19 10:05 02/21/19 14:16 Results Result Diagrams: 02/13/19 12:51 All other labs normal. Assessment and Plan Assessment and Plan Impression 1. [place] Di Twins at 28 6/7 weeks 2. Severe IUGR Twin B with AEDF 3. SUA Twin A and B Recommendations 1. EFM 2. Would obtain EFW with BPP and cord dopplers 02/21/19 3. LDA if not receiving daily - 81 mg q day 4. Patient had declined Amnio for aneuploidy - Awaiting NIPT 5. Will check for other labs Torch sent out 6. Delivery for evidence of compromise or REDF 7. S/P steroids and Mg 8. Cont close A-P surveillance and Cord dopplers and BPP on // 9. Obtain US EFW q 2-3 weeks next EFW's should be done week of 02/21/19
--- NOTE | 2019-02-21 18:01 | Progress Note ---
Assessment and Plan Twin IUP with IUGR and abnormal dopplers here for inpatient monitoring. Will deliver as obstretrically indicated. Subjective - Subjective Date of service: 02/21/19 Principal diagnosis: [place]-Di twin gestation, Twin B AEDV, growth restriction Interval history: Patient is a 28 year old who presents with a twin at 26 weeks as a transfer patient. She was seen at [facility] and told she had discordant growth and 2 vessel cords x2. She presents to the hospital at the request of [facility] for monitoring, steroids and iv hydration. Patient reports: movement normal, no new complaints, no loss of fluid, no vaginal bleeding, no contractions Objective - Vital Signs Vital Signs: Vital Signs - 12hr 02/21/19 02/21/19 02/21/19 10:00 10:05 10:06 Temperature 98.6 F Pulse Rate 133 H 132 H Respiratory 18 Rate Blood Pressure 98/51 O2 Sat by Pulse 97 Oximetry 02/21/19 02/21/19 02/21/19 10:20 10:25 10:26 Temperature Pulse Rate 133 H 149 H 147 H Respiratory Rate Blood Pressure O2 Sat by Pulse 98 97 92 Oximetry 02/21/19 02/21/19 02/21/19 10:30 10:36 10:38 Temperature Pulse Rate 116 H 116 H 52 L Respiratory Rate Blood Pressure O2 Sat by Pulse 100 98 47 L Oximetry 02/21/19 02/21/19 02/21/19 10:41 10:46 10:51 Temperature Pulse Rate 121 H 106 H 104 H Respiratory Rate Blood Pressure O2 Sat by Pulse 99 98 97 Oximetry 02/21/19 02/21/19 02/21/19 10:56 11:01 11:06 Temperature Pulse Rate 122 H 123 H 117 H Respiratory Rate Blood Pressure O2 Sat by Pulse 98 99 99 Oximetry 02/21/19 02/21/19 02/21/19 11:11 11:16 11:21 Temperature Pulse Rate 103 H 108 H 94 H Respiratory Rate Blood Pressure O2 Sat by Pulse 99 98 98 Oximetry 02/21/19 02/21/19 02/21/19 11:26 11:31 11:36 Temperature Pulse Rate 118 H 101 H 97 H Respiratory Rate Blood Pressure O2 Sat by Pulse 99 99 99 Oximetry 02/21/19 02/21/19 02/21/19 11:41 11:46 11:51 Temperature Pulse Rate 101 H 97 H 90 Respiratory Rate Blood Pressure O2 Sat by Pulse 99 99 98 Oximetry 02/21/19 02/21/19 02/21/19 11:56 12:01 12:06 Temperature Pulse Rate 87 90 99 H Respiratory Rate Blood Pressure O2 Sat by Pulse 98 99 98 Oximetry 02/21/19 02/21/19 02/21/19 12:11 12:16 12:21 Temperature Pulse Rate 87 102 H 83 Respiratory Rate Blood Pressure O2 Sat by Pulse 100 98 98 Oximetry 02/21/19 02/21/19 02/21/19 12:26 12:31 12:36 Temperature Pulse Rate 97 H 87 89 Respiratory Rate Blood Pressure O2 Sat by Pulse 98 98 100 Oximetry 02/21/19 02/21/19 02/21/19 12:41 12:46 12:51 Temperature 98.6 F Pulse Rate 95 H 89 89 Respiratory 18 Rate Blood Pressure O2 Sat by Pulse 99 99 99 Oximetry 02/21/19 02/21/19 02/21/19 12:56 13:01 13:06 Temperature Pulse Rate 90 82 91 H Respiratory Rate Blood Pressure O2 Sat by Pulse 99 99 99 Oximetry 02/21/19 02/21/19 02/21/19 13:11 13:13 13:16 Temperature Pulse Rate 89 109 H 94 H Respiratory Rate Blood Pressure O2 Sat by Pulse 99 72 L 100 Oximetry 02/21/19 02/21/19 02/21/19 13:21 13:26 13:31 Temperature Pulse Rate 89 91 H 95 H Respiratory Rate Blood Pressure O2 Sat by Pulse 100 100 100 Oximetry 02/21/19 02/21/19 02/21/19 13:34 13:36 13:41 Temperature Pulse Rate 100 H 90 89 Respiratory Rate Blood Pressure O2 Sat by Pulse 83 L 79 L 100 Oximetry 02/21/19 02/21/19 02/21/19 13:46 13:51 13:56 Temperature Pulse Rate 99 H 95 H 93 H Respiratory Rate Blood Pressure O2 Sat by Pulse 99 100 100 Oximetry 02/21/19 02/21/19 02/21/19 14:01 14:03 14:06 Temperature Pulse Rate 93 H 110 H 92 H Respiratory Rate Blood Pressure O2 Sat by Pulse 100 63 L 100 Oximetry 02/21/19 02/21/19 02/21/19 14:11 14:16 14:32 Temperature Pulse Rate 100 H 97 H 105 H Respiratory Rate Blood Pressure O2 Sat by Pulse 100 100 100 Oximetry 02/21/19 02/21/19 02/21/19 14:37 14:42 14:44 Temperature Pulse Rate 110 H 120 H 103 H Respiratory Rate Blood Pressure O2 Sat by Pulse 100 100 93 Oximetry 02/21/19 02/21/19 02/21/19 14:47 14:52 14:57 Temperature Pulse Rate 103 H 87 97 H Respiratory Rate Blood Pressure O2 Sat by Pulse 100 100 100 Oximetry 02/21/19 02/21/19 02/21/19 15:02 15:07 15:12 Temperature Pulse Rate 84 102 H 104 H Respiratory Rate Blood Pressure O2 Sat by Pulse 100 100 100 Oximetry 02/21/19 02/21/19 02/21/19 15:17 15:22 15:27 Temperature Pulse Rate 95 H 104 H 107 H Respiratory Rate Blood Pressure O2 Sat by Pulse 100 100 100 Oximetry 02/21/19 02/21/19 02/21/19 15:35 15:40 15:45 Temperature Pulse Rate 104 H 107 H 98 H Respiratory Rate Blood Pressure O2 Sat by Pulse 53 L 100 100 Oximetry 02/21/19 02/21/19 02/21/19 15:50 15:55 16:00 Temperature 97.9 F Pulse Rate 99 H 101 H 98 H Respiratory 18 Rate Blood Pressure O2 Sat by Pulse 100 100 100 Oximetry 02/21/19 02/21/19 02/21/19 16:02 16:05 16:10 Temperature Pulse Rate 85 92 H 90 Respiratory Rate Blood Pressure 118/71 O2 Sat by Pulse 100 100 Oximetry 02/21/19 02/21/19 02/21/19 16:14 16:15 16:20 Temperature Pulse Rate 101 H 84 88 Respiratory Rate Blood Pressure O2 Sat by Pulse 92 100 100 Oximetry - Exam Breasts: deferred Cardiovascular: Regular rate, Normal S1, Normal S2 Lungs: Clear to auscultation, Normal air movement Abdomen: Present: normal appearance, soft, normal bowel sounds Uterus: Present: normal, firm FHR: auscultation normal - Labs Labs: Abnormal Labs 02/13/19 12:51 WBC 17.0 H RDW 17.9 H
--- NOTE | 2019-02-21 23:44 | Ultrasound Report ---
PROCEDURE: US OB BPP WO NON-STRESS TECHNIQUE: Sonographic evaluation for breathing, movement, tone, and amniotic flui d volume was performed. HISTORY: IUGR COMPARISONS: None . FINDINGS: FETUS A: Amniotic fluid volume Normal-score 2. At least one vertical pocket >2 cm or more in vertical axis . breathing: Normal-score 2 . movement: Normal-score 2 . tone: Normal-score 2 . Score: 8 of 8 . heart rate is 145 bpm IMPRESSION: Normal biophysical profile fetus A. This document is electronically signed by Wil Martinez MD., February 21 2019 11:42:04 PM ET
--- NOTE | 2019-02-21 23:49 | Ultrasound Report ---
PROCEDURE: US OB BPP EA ADD EXAM TECHNIQUE: Sonographic evaluation for breathing, movement, tone, and amniotic flui d volume was performed. HISTORY: IUGR COMPARISONS: None . FINDINGS: FETUS B Amniotic fluid volume Normal-score 2. At least one vertical pocket >2 cm or more in vertical axis . breathing: Normal-score 2 . movement: Normal-score 2 . tone: Normal-score 2 . Score: 8 of 8 . heart rate is 127 bpm IMPRESSION: Normal biophysical profile fetus B. This document is electronically signed by Wil Martinez MD., February 21 2019 11:47:29 PM ET
[2019-02-22] MEDS: BABY ASPIRIN PO SCH (09:52)
[2019-02-22] MEDS: PEPCID PO SCH ×2 (09:52→21:45)
[2019-02-22] MEDS: PRENATAL VITAMIN PO SCH ×2 (09:52→09:53)
--- NOTE | 2019-02-22 23:00 | Ultrasound Report ---
EXAM: US OB FOLLOW UP HISTORY: IUGR TECHNIQUE: Blum scale imaging, duplex Doppler and color flow Doppler imaging are performed with a cur vilinear transducer. COMPARISON: None available. FINDINGS: There is a single IUP in cephalic presentation. The estimated heart rate is 145 beats per minut e. No gross anomaly is seen at this time (very limited views of the anatomy). The following biometric measurements are obtained: BPD 6.50 cm (26 weeks 2 days) HC 23.91 cm (25 weeks 6 days) AC 22.33 cm (27 weeks 1 day) FL 5.66 cm (29 weeks 4days) The estimated composite gestational age is 27 weeks, 2 days, plus/minus standard deviation. The LUCILLE i s 05/21/2019. The biometric ratios are obtained: Cephalic index 85.1 (range 74-83); HC/AC 1.04 (range 1.05-1.22); FL/BPD 86.3 (range 70.8-86.8); FL/HC 23.6 (range 17-22); FL/AC 24.6 (range 20-24). The es timated weight is 1128 g +/-167 g or 2 lbs. 8 oz.+/-6 ounces (9%). There is a anterior placenta, without evidence for placenta previa or abruption. There is no evidence for cervical incompetence. The amniotic fluid volume is within normal limits (largest fluid pocket m easures 3.8 cm AP). The ovaries are not visualized. No free fluid is seen in the pelvis. IMPRESSION: 1. Single live IUP. 2. Estimated gestational age of 27 weeks, 2 days plus/minus standard deviation. The LUCILLE is 05/21/2019 . 3. The estimated heart rate is 145 beats per minute. 4. The estimated weight is 1128 g +/-167 g or 2 lbs. 8 oz.+/-6 ounces (9%). 5. Abnormal biometric ratios in keeping with IUGR. 6. Anterior placenta without evidence for placental previa or abruption. 7. The amniotic fluid volume is within normal limits. 8. The ovaries are not visualized. 9. No free fluid is seen in the pelvis. This document is electronically signed by Eitan Castro MD., February 22 2019 10:58:37 PM ET
--- NOTE | 2019-02-22 23:33 | Ultrasound Report ---
EXAM: US OB FOLLOWUP EA ADD GESTAT: Twin B HISTORY: IUGR TECHNIQUE: Blum scale imaging, duplex Doppler and color flow Doppler imaging are performed with a cur vilinear transducer. COMPARISON: None available. FINDINGS: There is a single IUP in cephalic presentation. The estimated heart rate is 127 beats per minut e. No gross anomaly is seen at this time (very limited views of the anatomy). The following biometric measurements are obtained: BPD 5.87 cm (24 weeks 0 days) HC 22.25 cm (24 weeks 2 days) AC 18.94 cm (23 weeks 5 days) FL 4.39 cm (24 weeks 4 days) The estimated composite gestational age is 24 weeks, 1 day, plus/minus standard deviation. The LUCILLE is 06/12/2019. The biometric ratios are as follows: Cephalic index 80.4 (range 74-83); HC/AC 1.07 (range 1.05-1.22); FL/BPD 75.6 (range 70.8-86.8); FL/HC 20.0 (range 17.0-22.4); FL/AC 23.4 (range 20.0-24.0 ). The estimated weight is 662 g +/-98 g or 1 lb. 7 oz.+/-3 ounces. There is a anterior placenta, without evidence for placenta previa or abruption. There is no evidence for cervical incompetence. The amniotic fluid volume is within normal limits. The ovaries are not visualized. No free fluid is seen in the pelvis. IMPRESSION: 1. Single live IUP in cephalic presentation. 2. Estimated gestational age of 24 weeks, 1 days plus/minus standard deviation. The LUCILLE is 06/12/2019 . 3. The estimated heart rate is 127 beats per minute. 4. The estimated weight is 662 g +/-98 g or 1 lb. 7 oz.+/-3 ounces. 5. Anterior placenta without evidence for placental previa or abruption. 6. The amniotic fluid volume is within normal limits. 7. The ovaries are not visualized. 8. No free fluid is seen in the pelvis. This document is electronically signed by Eitan Castro MD., February 22 2019 11:31:22 PM ET
[2019-02-23] MEDS: PEPCID PO SCH (11:14)
[2019-02-23] MEDS: BABY ASPIRIN PO SCH (11:14)
[2019-02-23] MEDS: PRENATAL VITAMIN PO SCH (11:14)
--- NOTE | 2019-02-23 11:15 | Progress Note ---
Assessment and Plan HD 14 for this twin with IUGR severe for twin B and AEDF. Twin B does not seem to be growing at all. Will discuss delivery with [facility] to see if extrauterine management is more beneficial. Subjective - Subjective Date of service: 02/23/19 Principal diagnosis: [place]-Di twin gestation, Twin B AEDV, growth restriction Interval history: Patient is a 28 year old who presents with a twin at 26 weeks as a transfer patient. She was seen at [facility] and told she had discordant growth and 2 vessel cords x2. She presents to the hospital at the request of [facility] for monitoring, steroids and iv hydration. Patient reports: movement normal, no new complaints, no loss of fluid, no vaginal bleeding, no contractions Objective - Vital Signs Vital Signs: Vital Signs - 12hr 02/22/19 23:13 Temperature 98.6 F Pulse Rate 112 H Respiratory 18 Rate Blood Pressure 116/55 [Left] - Exam Breasts: deferred Cardiovascular: Regular rate, Normal S1, Normal S2 Lungs: Clear to auscultation, Normal air movement Abdomen: Present: normal appearance, soft Vulva: both: normal Uterus: Present: normal, firm Uterine Contraction Pattern: Absent - Labs Labs: Abnormal Labs 02/13/19 12:51 WBC 17.0 H RDW 17.9 H
--- NOTE | 2019-02-23 13:33 | Ultrasound Report ---
PROCEDURE: US OB VELOCIMETRY UMBILCAL ART TECHNIQUE: Duplex Doppler ultrasound of the umbilical artery of the aorta was performed HISTORY: aedf, iugr COMPARISONS: None. FINDINGS: There is a normal waveform of the umbilical artery. S/D ratio: Free loop 1: 3.6 Free loop 2: 3.82 Free loop 3: 3.9 S/D ratio average: 3.77 RI: Free loop 1: 0.72 Free loop 2: 0.74 Free loop 3: 0.74 RI average: 0.73 heart rate: 143 bpm. IMPRESSION: Normal exam of the umbilical artery for baby A. This document is electronically signed by Bella James MD., February 23 2019 01:31:26 PM ET
--- NOTE | 2019-02-23 13:38 | Ultrasound Report ---
PROCEDURE: US OB VELOCIMETRY UMBILCAL ART TECHNIQUE: Duplex Doppler ultrasound of the umbilical artery for baby B was performed HISTORY: IUGR; TWINS COMPARISONS: Umbilical artery ultrasound performed on 02/09/2019 FINDINGS: heart rate: 141 bpm There is reversal of end diastolic flow. Pulsatility index (PI): Free loop 1: 1.11 Free loop 2: 1.09 Free loop 3: 1.23 PI average: 1.14 IMPRESSION: Abnormal waveform of the umbilical artery for Baby B with reversal of end diastolic flow. This document is electronically signed by Bella James MD., February 23 2019 01:36:32 PM ET
--- NOTE | 2019-02-23 13:42 | Ultrasound Report ---
PROCEDURE: US OB BPP EA ADD EXAM TECHNIQUE: Sonographic evaluation for breathing, movement, tone, and amniotic flui d volume was performed. HISTORY: AEDF, IUGR, wellbeing, COMPARISONS: 02/21/2019 . FINDINGS: This is a twin . Findings below are for Baby B. FETUS B Amniotic fluid volume Normal-score 2. At least one vertical pocket >2 cm or more in vertical axis . breathing: Normal-score 2 . movement: Normal-score 2 . tone: Normal-score 2 . Score: 8 of 8 . heart rate: 137 bpm. IMPRESSION: Normal biophysical profile . This document is electronically signed by Bella James MD., February 23 2019 01:40:45 PM ET
--- NOTE | 2019-02-23 14:45 | Ultrasound Report ---
PROCEDURE: US OB BPP WO NON-STRESS TECHNIQUE: Sonographic evaluation for breathing, movement, tone, and amniotic flui d volume was performed for baby A. HISTORY: IUGR; TWINS COMPARISONS: Biophysical profile performed on 02/21/2019 . FINDINGS: FETUS A Amniotic fluid volume Normal-score 2. At least one vertical pocket >2 cm or more in vertical axis . breathing: Normal-score 2 . movement: Normal-score 2 . tone: Normal-score 2 . Score: 8 of 8 . heart rate: 153 bpm IMPRESSION: Normal biophysical profile . This document is electronically signed by Bella James MD., February 23 2019 02:43:12 PM ET
[2019-02-24] MEDS: PEPCID PO SCH ×2 (11:17→22:30)
[2019-02-24] MEDS: BABY ASPIRIN PO SCH (11:17)
[2019-02-24] MEDS: PRENATAL VITAMIN PO SCH (11:17)
[2019-02-25] MEDS ORDERED: MAGNESIUM SULFATE 4GM/100ML 4 GM/100 ML BAG IV ONE (01:53)
[2019-02-25] MEDS: LACTATED RINGERS 1,000 ML IV SCH (02:31)
[2019-02-25] MEDS ORDERED: REGLAN IV ONE (04:47)
[2019-02-25] MEDS ORDERED: BICITRA PO ONE (04:47)
[2019-02-25] MEDS ORDERED: PEPCID IV ONE (04:47)
[2019-02-25] MEDS ORDERED: ANCEF/STERILE WATER 2 GM/20 ML 2 GM/20 ML SYRINGE IV NR (05:00)
[2019-02-25] MEDS ORDERED: PITOCin/NS 20 UNIT/1000ML DRIP 20 UNITS/1,000 ML BAG IV SCH ×2 (05:00→12:00)
[2019-02-25] MEDS ORDERED: LACTATED RINGERS 1,000 ML IV SCH (05:00)
[2019-02-25 05:08] LABS: Hematocrit 35.3 % (30.3-42.9); Hemoglobin 12.5 gm/dl (10.1-14.3); Mean Corpuscular HGB Conc 36 % (30-34); Mean Corpuscular Volume 89 fl (79-97); Platelet Count 327 K/mm3 (140-440); Red Blood Count 3.97 M/mm3 (3.65-5.03); Red Cell Distribution Width 26.3 % (13.2-15.2)
--- NOTE | 2019-02-25 05:16 | Anesthesia Consultation ---
Anesthesia Consult and Med Hx Date of service: 02/25/19 - Airway Anesthetic Teeth Evaluation: Good ROM Head & Neck: Adequate Mental/Hyoid Distance: Adequate Mallampati Class: Class II - Pulmonary Exam CTA: Yes - Cardiac Exam Cardiac Exam: RRR - Pre-Operative Health Status ASA Pre-Surgery Classification: ASA2 Proposed Anesthetic Plan: Spinal - Pulmonary Hx Asthma: No COPD: No Hx Pneumonia: No - Cardiovascular System Hx Hypertension: No - Central Nervous System Hx Seizures: No Hx Psychiatric Problems: No - Endocrine Hx Renal Disease: No Hx End Stage Renal Disease: No Hx Hypothyroidism: No Hx Hyperthyroidism: No - Hematic Hx Anemia: Yes (takes Iron daily) Hx Sickle Cell Disease: No - Other Systems Hx Alcohol Use: No
--- NOTE | 2019-02-25 05:17 | Anesthesia Day of Surgery ---
Anesthesia Day of Surgery - Day of Surgery Patient Examined: Yes Patient H&P Reviewed: Yes Patient is NPO: Yes Enio's Test: N/A
[2019-02-25 05:45] LABS: Anisocytosis 3+; Band Neutrophils # (Manual) 0.1 K/mm3; Burr Cells 2+; Eosinophils % (Manual) 0 % (0.0-4.3); Poikilocytosis 2+; Total Cells Counted 100
[2019-02-25 05:46] LABS: Platelet Estimate Consistent w Auto
[2019-02-25] MEDS ORDERED: ZOFRAN ONE (05:55)
[2019-02-25] MEDS ORDERED: SUBLIMAZE ONE (05:55)
--- NOTE | 2019-02-25 06:09 | Event Note ---
Date: 02/25/19 Called by nursing staff to evaluate patient due to repeat late decelerations with reoccurring contractions. Pt was given a fluid bolus and started on mag but contractions did not stop. Will now proceed with urgent . NICU and anesthesia aware.
[2019-02-25] MEDS ORDERED: DECADRON ONE (06:43)
[2019-02-25] MEDS ORDERED: TORADOL ONE (06:43)
[2019-02-25] MEDS ORDERED: BENADRYL ONE (06:43)
--- NOTE | 2019-02-25 07:15 | Procedure Note ---
OB Delivery Note - Delivery Date of Delivery: 02/25/19 Surgeon: EDWIGE SAN Estimated blood loss: other (800cc) - Section Preop diagnosis: nonreassuring FHR tracing, other (iugr, AEDF, twins) Postop diagnosis: same (with fibroid uterus) section procedure: primary low transverse Disposition: PACU Complications: other (myomectomy) Narrative: see op report - Infant A at 1 minute: 6 at 5 minutes: 7 Gender: Female (680 grams (1 pound 8 ounces)) B at 1 minute: 5 at 5 minutes: 7 (9 at 10 minutes) Infant Gender: Female (1025 grams 2 pounds)
[2019-02-25] MEDS ORDERED: DILAUDID ONE (07:16)
[2019-02-25] MEDS ORDERED: SODIUM CHLORIDE FLUSH SYRINGE 10 ML IV PRN (08:00)
[2019-02-25] MEDS ORDERED: ZOFRAN IV PRN (08:30)
[2019-02-25] MEDS ORDERED: DILAUDID IV PRN (08:30)
[2019-02-25] MEDS ORDERED: PHENERGAN PR PRN ×2 (08:30→11:11)
[2019-02-25] MEDS ORDERED: PHENERGAN PO PRN (08:30)
[2019-02-25] MEDS ORDERED: MORPHINE IV PRN (08:30)
[2019-02-25] MEDS ORDERED: NARCAN 0.4 MG/1 ML IV PRN ×2 (08:30→12:00)
[2019-02-25] MEDS ORDERED: SODIUM CHLORIDE FLUSH SYRINGE 10 ML IV NR (11:11)
[2019-02-25] MEDS ORDERED: TUCKS PAD TP PRN (12:00)
[2019-02-25] MEDS ORDERED: TORADOL IV PRN (12:00)
[2019-02-25] MEDS ORDERED: MYLICON PO PRN (12:00)
[2019-02-25] MEDS ORDERED: LANSINOH TP PRN (12:00)
[2019-02-25] MEDS ORDERED: D5LR 1,000 ML IV SCH (12:00)
[2019-02-25] MEDS ORDERED: TYLENOL PO PRN (12:00)
[2019-02-25] MEDS: PRENATAL VITAMIN PO SCH (13:24)
[2019-02-25] MEDS: FEOSOL PO SCH (13:24)
[2019-02-25] MEDS: NORCO 5/325 PO PRN (13:25)
[2019-02-25 17:59] LABS: Hematocrit 34.1 % (30.3-42.9); Hemoglobin 11.7 gm/dl (10.1-14.3)
[2019-02-25] MEDS ORDERED: MILK OF MAGNESIA PO PRN (22:00)
[2019-02-25] MEDS ORDERED: SENOKOT PO PRN (22:00)
[2019-02-26] MEDS: NORCO 5/325 PO PRN ×2 (01:55→10:54)
--- NOTE | 2019-02-26 08:42 | Progress Note ---
Assessment and Plan POD 1 s/p ltcs for twins at 29 weeks with IUGR and AEDF which is likely secondary to intracavitary fibroid. Pt is doing well post op. Continue routine care Subjective - Subjective Date of service: 02/26/19 Principal diagnosis: [place]-Di twin gestation, Twin B AEDV, growth restriction Interval history: Patient is a 28 year old who presents with a twin at 26 weeks as a transfer patient. She was seen at [facility] and told she had discordant growth and 2 vessel cords x2. She presents to the hospital at the request of [facility] for monitoring, steroids and iv hydration. Patient reports: appetite normal, voiding normally, pain well controlled, ambulating normally [place]: in NICU Objective - Vital Signs Latest vital signs: Vital Signs Temp Pulse Resp BP BP Pulse Ox 02/26/19 00:00 99 F 74 16 108/64 02/25/19 20:00 98.6 F 69 18 104/78 02/25/19 16:32 97.5 F L 92 H 18 102/45 100 02/25/19 13:25 18 02/25/19 12:18 97.8 F 94 H 18 109/65 02/25/19 09:20 97.4 F L 89 20 115/51 98 Intake and Output 02/25/19 02/26/19 02/26/19 22:59 06:59 14:59 Intake Total 540 Output Total 2200 1300 Balance -1660 -1300 Intake: Oral 240 Intake, Free Water 300 Output: Urine 2200 1300 Indwelling Catheter 1400 Void 800 1300 Other: Total, Intake Amount 240 Total, Output Amount 800 700 # Voids Void 1 1 - Exam Breasts: Present: deferred Cardiovascular: Present: Regular rate, Normal S1, Normal S2 Lungs: Present: Clear to auscultation, Normal air movement Abdomen: Present: normal appearance, soft Uterus: Present: normal, firm Extremities: Present: normal Incision: Present: normal, dry, intact
[2019-02-26] MEDS: FEOSOL PO SCH (10:53)
[2019-02-26] MEDS: PRENATAL VITAMIN PO SCH (10:54)
[2019-02-26] MEDS: IBUPROFEN PO PRN (16:06)
[2019-02-27] MEDS: NORCO 5/325 PO PRN ×3 (00:03→23:27)
[2019-02-27] MEDS: IBUPROFEN PO PRN ×3 (00:04→23:27)
[2019-02-27] MEDS: PRENATAL VITAMIN PO SCH (09:55)
[2019-02-27] MEDS: FEOSOL PO SCH (09:55)
--- NOTE | 2019-02-27 15:42 | Progress Note ---
Assessment and Plan POD 2 s/p ltcs, doing well. Both infants are in NICU due to prematurity. Patient to be discharged on tomorrow. Subjective - Subjective Date of service: 02/27/19 Principal diagnosis: [place]-Di twin gestation, Twin B AEDV, growth restriction Interval history: Patient is a 28 year old who presents with a twin at 26 weeks as a transfer patient. She was seen at [facility] and told she had discordant growth and 2 vessel cords x2. She presents to the hospital at the request of [facility] for monitoring, steroids and iv hydration. Patient reports: appetite normal, voiding normally, pain well controlled : in NICU Objective - Vital Signs Latest vital signs: Vital Signs Temp Pulse Resp BP Pulse Ox 02/27/19 07:59 98.6 F 84 16 128/79 99 02/27/19 01:19 98.8 F 107 H 20 109/53 97 02/26/19 16:40 99.1 F 99 H 20 130/70 98 02/26/19 16:06 16 Intake and Output 02/27/19 02/27/19 02/27/19 06:59 14:59 22:59 Intake Total 840 Balance 840 Intake: Oral 480 Intake, Free Water 360 Other: Total, Intake Amount 480 # Voids Void 1 - Exam Breasts: Present: deferred Cardiovascular: Present: Regular rate, Normal S1, Normal S2 Lungs: Present: Clear to auscultation, Normal air movement Abdomen: Present: normal appearance, soft, normal bowel sounds Uterus: Present: normal, firm Extremities: Present: normal Incision: Present: normal, intact
--- NOTE | 2019-02-27 15:50 | Operative Report ---
Operative Report Operative Report: The operative report for patient Chaim Stein Date of service 02/25/2019 Preoperative diagnosis: Twin Intrauterine at 29 and 2 weeks 2. Severe IUGR of twin B 3. Contractions with nonreassuring heart tones of twin B Postoperative diagnosis: Same with multiple uterine fibroids, the largest of which was intracavitary measuring approximately 7 cm in diameter. Procedure: Primary low transverse section with myomectomy Surgeon: Dr. Aline Arreguin EBL: 800 mL Urine output: 150 mL IV fluids: 2000 mL LR Findings: 2 viable females in the breech (twin A) and vertex (twin B ) position. Weight of twin A 690 g with Apgars 7 and 8, twin B 1095 g with Apgars 5 and 7 and 9. Multiple uterine fibroids of various sizes Specimens: 7 cm uterine fibroid Complications: None Procedure: The patient was admitted to the OR with IV running and in place. She was properly identified as herself. A spinal was placed in the OR without difficulty.. She was placed in the dorsal supine position with a leftward tilt. A Rogers catheter was inserted. She was then prepped and draped in the normal sterile fashion. An Allis test was used to confirm adequate anesthesia. Once confirmed, the incision was made with the scalpel and carried to the underlying fascia using the scalpel and the Bovie. The fascia was incised in the midline and incision was extended bilaterally using the curved Sánchez scissors. The fascia was then dissected from the underlying rectus muscles in a series of sharp and blunt dissection using the Sánchez scissors. Muscles were in the in the midline sharply using Metzenbaum scissors and the peritoneum was entered into bluntly using the surgeon's fingers. A large Saulo retractor was placed into the incision. A bladder blade was then placed into the incision to protect the bladder. Following this the bladder flap was created. Hysterotomy incision was then made in the scalpel. Upon uterine entry, the amniotic sac of twin A was ruptured for clear fluid. The infant was then delivered in the breech presentation. Her mouth and nose were suctioned on the field. The cord was clamped and cut and she was handed to the waiting NICU personnel. The second twin was delivered after manual of her membranes for clear fluid in the vertex presentation. She too was handed off to the waiting NICU personnel The placenta was delivered manually and taken off the field. The uterus was then exteriorized and cleared of all clots and debris. The large fibroid that was protruding into the uterine cavity prevented the intermediate closure of the hysterotomy incision, therefore the decision was made to remove that fibroid. The tissue surrounding the fibroid was dissected out and bovied and the fibroid was then handed off the field for pathology. The hysterotomy incision was then closed in a running locked fashion using 0 Vicryl. The abdomen was then copiously irrigated with warm normal saline. Following this the uterus was replaced into the abdominal cavity. At this point the muscles were reapproximated in the midline using individual sutures of 0 Vicryl. Following this the fascia was closed in a running fashion using 0 Vicryl. Tissue was then copiously irrigated. A retention suture was placed in the subcuticular fat. Skin was closed in a running fashion using 3-0 Monocryl. The sponge lap needle and instrument counts were correct 2. The patient tolerated the procedure well. She was taken to recovery in stable condition.
--- NOTE | 2019-02-27 16:03 | Discharge Summary ---
Providers - Providers Date of Admission: 02/08/19 17:54 Date of discharge: 02/28/19 Attending physician: EDWIGE SAN Primary care physician: EDWIEG SAN Hospitalization Reason for admission: section, labor, other (twin iugr) Delivery: Procedure: primary low transverse Episiotomy: none Laceration: none Incision: normal, dry, intact complications: none Discharge diagnosis: IUP at term delivered baby: twins Hospital course: prolonged stay Condition at discharge: Good Disposition: DC-01 TO HOME OR SELFCARE Plan - Discharge Medications Prescriptions: Docusate Sodium [Colace] 100 mg PO BID PRN #60 capsule PRN Reason: Constipation Ibuprofen [Motrin 800 MG tab] 800 mg PO Q6H PRN #40 tablet PRN Reason: Pain, Mild (1-3) oxyCODONE /ACETAMINOPHEN [Percocet 5/325] 2 tab PO Q6HR PRN #40 tablet PRN Reason: Pain Vit-Fe Fumar-FA [ Vitamin] 1 each PO QDAY #30 tablet - Provider Discharge Summary Activity: routine, no sex for 6 weeks, no heavy lifting 4 weeks Diet: routine Instructions: routine Additional instructions: [] Smoking cessation referral if applicable(refer to patient education folder for contact #) [] Refer to [facility] Booklet Call your doctor immediately for: * Fever > 100.5 * Heavy vaginal bleeding ( >1 pad per hour) * Severe persistent headache * Shortness of breath * Reddened, hot, painful area to leg or breast * Drainage or odor from incision. * Keep incision clean and dry at all times and follow doctor's instructions regarding bathing/showering - Follow up plan Follow up: EDWIGE SAN MD [Primary Care Provider] - 14 Days
[2019-02-28] MEDS: FEOSOL PO SCH (10:59)
[2019-02-28] MEDS: IBUPROFEN PO PRN (11:00)
[2019-02-28] MEDS: PRENATAL VITAMIN PO SCH (11:00)
[2019-02-28 16:18] VITALS: BP 132/74
== END 2019-02-28 16:20 | disposition home or self-care (01) | DRG 765 ==
LOC: UNDOADMIN 18:54 → LD 18:54 → UNDOADMIN 02-08 17:54 → LD 02-13 01:05 → OB 02-25 09:33
PROVIDERS: ADMIT Obstetrics & Gynecology; ATTEND Obstetrics & Gynecology
PROC: 10D00Z1 Extraction of Products of Conception, Low, Open Approach (ICD-10-PCS; principal; 2019-02-25)
PROC: 0UB90ZZ Excision of Uterus, Open Approach (ICD-10-PCS; 2019-02-25)
DX: O36.5922 Maternal care for other known or suspected poor fetal growth, second trimester, fetus 2 (principal); O31.8X21 Other complications specific to multiple gestation, second trimester, fetus 1; O31.8X22 Other complications specific to multiple gestation, second trimester, fetus 2; O43.022 Fetus-to-fetus placental transfusion syndrome, second trimester; O99.214 Obesity complicating childbirth; E66.9 Obesity, unspecified; D25.9 Leiomyoma of uterus, unspecified; O34.12 Maternal care for benign tumor of corpus uteri, second trimester; O76 Abnormality in fetal heart rate and rhythm complicating labor and delivery; O30.032 Twin pregnancy, monochorionic/diamniotic, second trimester; Z3A.27 27 weeks gestation of pregnancy; Z3A.26 26 weeks gestation of pregnancy; Z37.2 Twins, both liveborn
CPT/HCPCS: 36415; 76816; 76819; 76820; 83036; 84443; 85007; 85014; 85018; 85025; 85027; 85613; 86592; 86706; 86762; 86850; 86900; 86901; 87806; 88305; 88307; G0378; J0690; J0702; J1100; J1170; J1200; J1885; J2405; J2590; J2765; J3010; J3475; J7120; J7121